=== PATIENT | female | born 1985 | race Caucasian/White ===

== ENCOUNTER 2016-12-17 13:58 | Emergency (ER) | payer MEDICAID ==
[~2016-12-17] VITALS: Ht 149.9 cm; Wt 81.8 kg
[2016-12-17 14:00] VITALS: Ht 149.9 cm; Wt 81.8 kg
--- OUTSIDE RECORDS SUMMARY | 2016-12-17 14:04 | XMS REPORT | Continuity of Care Document ---
Author Author [facility] Organization [facility] Address Unknown Phone Unavailable Allergies Active Description Code Type Severity Reaction Onset Reported/Identified Relationship to Patient Clinical Status Yes PENICILLIN 25856 1 N/A N/A Medications Medication Packaging Start Date Stop Date Route Dosage Sig ONDANSETRON ODT Tablet 12/12/2016 take 1 tablet by oral route every [address] on top of the tongue where they will dissolve, then swallow Problems Date Dx Coded Attending Type Code Diagnosis Diagnosed By 12/10/2016 Randee Paul O09.893 Supervision of other high risk pregnancies , third trimester 12/10/2016 Randee Paul Z3A.36 36 weeks gestation of Procedures Code [place] [address] Ultrasnd exam of preg uterus, compl 12/10/2016 Results Encounters ACCT No. Visit Date/Time Discharge Status Pt. Type Provider Facility Loc./Unit Complaint [id number] 12/12/2016 08:39:00 12/12/2016 23: 59:59 [facility] Outpatient Randee Paul [id number] 12/10/2016 15:30:00 12/10/2016 23: 59:59 [facility] Outpatient Randee Paul [id number] 12/10/2016 14:45:00 12/10/2016 23: 59:59 [facility] Outpatient Randee Paul [id number] 12/06/2016 09:50:00 12/06/2016 23: 59:59 [facility] Outpatient Randee Paul
[2016-12-17] MEDS ORDERED: ONDA4TAB7 PO (14:07)
[2016-12-17] MEDS ORDERED: PREN1TAB73 PO (14:07)
[2016-12-17] MEDS ORDERED: NO ROUTINE MEDS (14:08)
[2016-12-17] MEDS ORDERED: DiphenhydrAMINE 50 MG/ML INJECTION IV ONE (14:45)
[2016-12-17] MEDS ORDERED: MORPHINE SULFATE 2 MG SYRINGE IV ONE (14:45)
[2016-12-17] MEDS ORDERED: NORMAL SALINE 1,000 ML IV ONE (14:45)
[2016-12-17 14:59] LABS: BLOOD, URINE TRACE-LYSED (NEGATIVE); COLOR,URINE YELLOW (YELLOW); LEUKOCYTE ESTERASE ,URINE NEGATIVE (NEGATIVE); NITRITE,URINE NEGATIVE (NEGATIVE); UROBILINOGEN,URINE 0.2 EU/DL (NORMAL)
--- OUTSIDE RECORDS SUMMARY | 2016-12-17 15:07 | XMS REPORT | Continuity of Care Document ---
Author Author [facility] Organization [facility] Address Unknown Phone Unavailable Allergies Active Description Code Type Severity Reaction Onset Reported/Identified Relationship to Patient Clinical Status Yes PENICILLIN 93979 1 N/A N/A Medications Medication Packaging Start [...] Procedures Code Description [place] [address] Ultrasnd exam of preg uterus, compl 12/10/2016 Results Encounters ACCT No. Visit Date/Time Discharge Status Pt. Type Provider Facility Loc./Unit Complaint [id number] 12/12/2016 08:39:00 12/12/2016 23: 59:59 [facility] Outpatient Randee Paul [id number] 12/10/2016 15:30:00 12/10/2016 23: 59:59 [facility] Outpatient Randee Paul [id number] 12/10/2016 14:45:00 12/10/2016 23: 59:59 [facility] Outpatient Randee Paul [id number] 12/06/2016 09:50:00 12/06/2016 23: 59:59 [facility] Outpatient Randee Paul
[2016-12-17 15:26] LABS: BACTERIA,URINE TRACE (NEGATIVE); WBC CLUMPS,URINE FEW
[2016-12-17 15:34] LABS: BASOPHILS % (AUTO) 0.3 % (0-2); EOSINOPHILS % (AUTO) 0.2 % (0-4); HCT - HEMATOCRIT 39.2 % (36-46); HGB - HEMOGLOBIN 13.1 GM/DL (12-16); IMMATURE GRANULOCYTE # (AUTO) 0.17 T/MM3 (0.00-0.03); IMMATURE GRANULOCYTE % (AUTO) 1.8 % (0.0-0.5); LYMPHOCYTES # (AUTO) 1.4 T/MM3 (1-4.8); LYMPHOCYTES % (AUTO) 14.3 % (23-45); MEAN CORPUSCULAR HGB 27.9 UUG (26-34); MEAN CORPUSCULAR HGB CONC(MCHC 33.4 GM/DL (31-37); MEAN CORPUSCULAR VOLUME 83.6 UM3 (80-100); MEAN PLATELET VOLUME 11.8 UM3 (9.4-12.4); MONOCYTES # (AUTO) 0.5 T/MM3 (0-0.8); MONOCYTES % (AUTO) 5.4 % (0-9.0); NEUTROPHILS #(AUTO)-ABSOLUTE 7.3 T/MM3 (1.8-7.7); RED BLOOD COUNT 4.69 M/MM3 (4.00-5.20); WBC - WHITE BLOOD COUNT 9.4 T/MM3 (4.5-11.0)
--- NOTE | 2016-12-17 15:45 | ERPDOC ---
Departure Disposition Decision Date: Dec 17, 2016 Disposition Decision Time: 17:02 Disposition: 01 DISCHARGED HOME, SELF-CARE Impression Impression Impression: Primary Impression: Nausea and vomiting Vomiting type: unspecified Vomiting Intractability: non-intractable Qualified Codes: R11.2 - Nausea with vomiting, unspecified Additional Impression: Diarrhea Diarrhea type: unspecified type Qualified Codes: R19.7 - Diarrhea, unspecified Condition: Stable Seen By: Physician only Referrals: VINAY CLARK MD Follow-up as instructed Patient Instructions: Nausea and Vomiting in (ED) Problems/Meds/Labs Reviewed?: Yes Medications reviewed and manag: Yes Follow up care ordered?: Yes Mental Status: Alert, Oriented HPI - Abdominal Pain General Chief Complaint: Nausea,Vomiting,Diarrhea Stated Complaint: N.V,D Time Seen by Provider: 14:40 HPI - Abdominal Pain Allergies: Coded Allergies: Penicillins (Verified Allergy, Severe, ANAPHYLACTIC SHOCK, 12/17/16) Physical Exam General Vitals and Pain First Documented Vital Signs Date Time Temp Pulse Resp B/P Pulse Ox O2 Delivery O2 Flow Rate FiO2 12/17/16 14:00 98.3 99 15 134/90 96 Room Air Weight: Kilograms: 81.800 Height (feet): 4 Height (inches): 11.00 Triage Pain Scale: Progress Results/Orders Orders Procedure Category Date Status Time Iv Lock (Ed Only) EDM 12/17/16 Transmitted 14:40 Morphine Sulfate PHA 12/17/16 Complete (Morphine) 14:45 Diphenhydramine PHA 12/17/16 Complete (Benadryl) 14:45 Cbc W/Auto LAB 12/17/16 Complete Diff-Reflex Manual 14:40 Cmp - Comprehensive LAB 12/17/16 Complete Metabolic 14:40 Lipase LAB 12/17/16 Complete 14:40 Normal Saline (Normal PHA 12/17/16 Complete Saline Iv) 14:45 UA, LAB 12/17/16 Complete Dip&Micro(Complete) & 14:55 Lr (Lactated Ringers) PHA 12/17/16 Complete 16:00 Lr (Lactated Ringers) PHA 12/17/16 Complete W/Dimenhydrinate 16:53 Lab Results Laboratory Tests Test 12/17/16 14:07 12/17/16 14:55 White Blood Count 9.4T/MM3 Red Blood Count 4.69M/MM3 Hemoglobin 13.1GM/DL Hematocrit 39.2% Mean Corpuscular Volume 83.6UM3 Mean Corpuscular Hemoglobin 27.9UUG Mean Corpuscular Hemoglobin Concent 33.4GM/DL RDW Standard Deviation 45.3FL Platelet Count 120T/MM3 Mean Platelet Volume 11.8UM3 Immature Granulocyte % (Auto) 1.8% Neutrophils (%) (Auto) 78.0% Lymphocytes (%) (Auto) 14.3% Monocytes (%) (Auto) 5.4% Eosinophils (%) (Auto) 0.2% Basophils (%) (Auto) 0.3% Absolute Immature Granulocyte (auto 0.17T/MM3 Absolute Neutrophils (auto) 7.3T/MM3 Absolute Lymphocytes (auto) 1.4T/MM3 Absolute Monocytes (auto) 0.5T/MM3 Absolute Eosinophils (auto) 0.0T/MM3 Absolute Basophils (auto) 0.0T/MM3 Turbidity < 20 Sodium Level 140MEQ/L Potassium Level 4.5MEQ/L Chloride Level 109MEQ/L Carbon Dioxide Level 15MEQ/L Anion Gap 16MEQ/L Blood Urea Nitrogen 10.0MG/DL Creatinine 0.9MG/DL Glomerular Filtration Rate Calc 72 BUN/Creatinine Ratio 11RATIO Glucose Level 73MG/DL Calculated Osmolality 267MOSM/KG Calcium Level 9.2MG/DL Total Bilirubin 0.60MG/DL Icterus Index < 2 Aspartate Amino Transf (AST/SGOT) 27U/L Alanine Aminotransferase (ALT/SGPT) 23U/L Alkaline Phosphatase 249U/L Total Protein 7.1G/DL Albumin 3.5G/DL Globulin 3.6G/DL Albumin/Globulin Ratio 1.0RATIO Lipase 110U/L Chemistry Specimen Hemolysis < 15 Urine Collection Type Voided-not cc-midstr Urine Color Yellow Urine Turbidity Clear Urine pH 5.5 Urine Specific [place] >=1.030 Urine Protein 2+ Urine Glucose (UA) Negative Urine Ketones 1+ Urine Blood Trace-lysed Urine Nitrite Negative Urine Bilirubin Negative Urine Urobilinogen 0.2EU/DL Urine Leukocyte Esterase Negative Urine RBC 1-3/HPF Urine WBC 5-10/HPF Urine WBC Clumps Few Urine Squamous Epithelial Cells 10-20 Urine Bacteria Trace Urine Culture Indicated Cult not indicated Medications Current ED Medications Morphine Sulfate (Morphine) 2 mg O ONCE IV Last administered on 12/17/16t 14: 50; Start 12/17/16 at 14:45; Stop 12/17/16 at 14:46; Status DC Diphenhydramine HCl 50 mg 50 mg O ONCE IV Last administered on 12/17/16 14:49 ; Start 12/17/16 at 14:45; Stop 12/17/16 at 14:46; Status DC Sodium Chloride 1,000 ml @ 999 mls/hr Q1H1M ONCE IV Last administered on 14:44; Start 12/17/16 at 14:45; Stop 12/17/16 at 15:45; Status DC Lactated Ringer's 1,000 ml @ 0 mls/hr Q0M ONCE IV Last administered on 15:59; Start 12/17/16 at 16:00; Stop 12/17/16 at 16:01; Status DC Dimenhydrinate/ Lactated Ringer's (Dramamine/ Lactated Ringers) 1,001 ml @ 0 mls/hr Q0M ONCE IV ; Start 12/17/16 at 16:53; Stop 12/17/16 at 16:59; Status DC RICHARD HORN MD Dec 17, 2016 15:44
--- NOTE | 2016-12-17 15:56 | NUR ---
NST Maternal Child RN in room performing Non-Stress Test
[2016-12-17] MEDS ORDERED: LR 1,000 ML IV ONE (16:00)
[2016-12-17 16:06] LABS: ALBUMIN 3.5 G/DL (3.5-5.0); ALKALINE PHOSPHATASE 249 U/L (38-126); ALT (SGPT) 23 U/L (9-52); ANION GAP 16 MEQ/L (5-15); AST (SGOT) 27 U/L (14-36); BUN/CREATININE RATIO 11 RATIO (6-26); CALCIUM 9.2 MG/DL (8.4-10.2); CHLORIDE 109 MEQ/L (98-107); CO2 - CARBON DIOXIDE 15 MEQ/L (22-30); CREATININE 0.9 MG/DL (0.7-1.2); GLOMERULAR FILTRATION RATE 72; GLUCOSE 73 MG/DL (65-110); LIPASE 110 U/L (23-300); POTASSIUM 4.5 MEQ/L (3.6-5); SODIUM 140 MEQ/L (134-144); TOTAL PROTEIN 7.1 G/DL (6.3-8.2)
[2016-12-17] MEDS ORDERED: DimenhyDRINATE 50 MG in LR 1,000 ML IV ONE (16:53)
--- NOTE | 2016-12-17 17:11 | NUR ---
NST NST performed on pt from [id number]. Dr Paul reviewed strip as reactive and reassuring. Pt had contractions every 6-8 minutes initially with fluids contractions resolved.
[2016-12-17] MEDS ORDERED: ACETAMINOPHEN 500 MG TABLET PO ONE (17:15)
[2016-12-17 18:20] VITALS: BP 158/97; PULSE 79; RESP 20; TEMP 98.3; O2SAT 99
[2016-12-24] MEDS ORDERED: FLUO10CA21 PO (11:33)
== END 2016-12-17 18:20 | disposition home or self-care (01) ==
LOC: ED 13:58
DX: R11.2 Nausea with vomiting, unspecified (principal); R19.7 Diarrhea, unspecified
CPT/HCPCS: 80053; 81001; 83690; 85025; 96361; 96365; 96375; 99284; J1200; J1240; J7030; J7120

== ENCOUNTER 2016-12-24 14:30 | Inpatient (IN) | payer MEDICAID ==
[~2016-12-24] VITALS: Ht 149.9 cm; Wt 78.5 kg
[2016-12-24] VITALS (14 sets, daily range): BP systolic 97–177; BP diastolic 70–120; PULSE 65–95; RESP 14–18; TEMP 97.4–98.2; O2SAT 93–98
[~2016-12-24 14:30] MED LIST: FLUO10CA21 PO; NO ROUTINE MEDS; ONDA4TAB7 PO; PREN1TAB73 PO
--- OUTSIDE RECORDS SUMMARY | 2016-12-24 15:54 | XMS REPORT | Continuity of Care Document ---
Author Author [facility] Address Unknown Phone Unavailable Support Name Relationship Address Phone RICHARD HORN MD Caregiver [address] [place] [address] [place] [address] Unavailable SAW ANGELA Next Of Kin [address] [address] Insurance Providers Guarantor Cristian Aguiar Address [address] [address] Email DENIED 12-17-16 Payer [facility] [employer] Plan Policy Number [id number] Subscriber's Name Stefania,Cristian C Relationship 18 Self Effective Date 16 Expiration Date 17 Advance Directives Directive Response Recorded Date/Time Advanced Directives Type None 12/17/16 1:58pm Chief Complaint and Reason for Visit Chief Complaint Nausea,Vomiting,Diarrhea Reason for Visit Diarrhea Nausea and vomiting Problems Past Problems Medical Problem Onset Date Diarrhea Unknown Nausea and vomiting Unknown Medications Current Home Medications Medication Dose Units Route Directions Days Qty Instructions Start Date No Routine Meds 12/17/16 Ondansetron (Zofran Odt) 4 Mg Tab.rapdis 4 Mg Oral Q6h/0300,0900,1500,2100 as needed for Nausea &/Or Vomiting 12/17/16 Pnv95/Ferrous Fumarate/Fa ( Tablet) 1 Each Tablet 1 Tab Oral Daily 12/17/16 Social History Social History Problem Response Recorded Date/Time Onset Date Status Hx Substance Use No 12/17/2016 2:23pm Not Applicable Not Applicable Hx Alcohol Use No 12/17/2016 2:23pm Not Applicable Not Applicable Query Response Start Date Stop Date Smoking Status Light Smoker Hospital Discharge Instructions No hospital discharge instructions. Plan of Care Discharge Date 12/17/16 6:20pm Disposition 01 DISCHARGED HOME, SELF-CARE Condition at Discharge Stable Instructions/Education Provided Nausea and Vomiting in (ED) Prescriptions See Medication Section Referrals VINAY CLARK MD Note: Follow-up as instructed Functional Status No functional status results. Allergies, Adverse Reactions, Alerts Allergen Type Severity Reaction Status Last Updated Penicillin Allergy Severe ANAPHYLACTIC SHOCK Active 12/17/16 Immunizations Query Response on File Recorded Date/Time Influenza Vaccine Hx 06/201612/17/16 2:23pm Tetanus Diptheria Vaccine History unsure 12/17/16 2:23pm Vital Signs Acute Vital Signs Vital Response Date/Time Temperature (Fahrenheit) 98.3 deg F (96.8 - 99.1) 12/17/2016 6:20pm Temperature (Calculated Celsius) 36.34660 degrees C (36.0 - 37.3) 12/17/2016 6:20pm Pulse Rate (adult) 79 bpm (60 - 100) 12/17/2016 6:20pm Respiratory Rate 20 breaths/min (10 - 20) 12/17/2016 6:20pm O2 Sat by Pulse Oximetry 99 % (90 - 100) 12/17/2016 6:20pm Blood Pressure 158/97 mm Hg 12/17/2016 6:20pm Height (Feet) 4 feet 12/17/2016 2:00pm Height (Inches) 11.00 inches 12/17/2016 2:00pm Weight (Kilograms) 81.800 kg 12/17/2016 2:00pm Body Mass Index (BMI) 36.0 12/17/2016 2:00pm Results Laboratory Results Test Name Result Units Flags Reference Collection Date/Time Result Date/ Time Comments White Blood Count 9.4 T/MM3 4.5-11.0 12/17/2016 2:07pm 12/17/2016 3: 34pm Red Blood Count 4.69 M/MM3 4.00-5.20 12/17/2016 2:07pm 12/17/2016 3: 34pm Hemoglobin 13.1 GM/DL 12-16 12/17/2016 2:07pm 12/17/2016 3:34pm Hematocrit 39.2 % 36-46 12/17/2016 2:07pm 12/17/2016 3:34pm Mean Corpuscular Volume 83.6 UM3 80-100 12/17/2016 2:07pm 12/17/2016 3: 34pm Mean Corpuscular Hemoglobin 27.9 UUG 26-34 12/17/2016 2:07pm 2016 3:34pm Mean Corpuscular Hemoglobin Concent 33.4 GM/DL 31-37 12/17/2016 2:0712/17/2016 3:34pm RDW Standard Deviation 45.3 FL 36.9-50.2 12/17/2016 2:0712/17/2016 3 :34pm Platelet Count 120 T/MM3 L 130-400 12/17/2016 2:12/17/2016 3:34pm Mean Platelet Volume 11.8 UM3 9.4-12.4 12/17/2016 2:07pm 12/17/2016 3: 34pm Neutrophils (%) (Auto) 78.0 % H 33-66 12/17/2016 2:pm 12/17/2016 3: 34pm Lymphocytes (%) (Auto) 14.3 % L 23-45 12/17/2016 2:pm 12/17/2016 3: 34pm Monocytes (%) (Auto) 5.4 % 0-9.0 12/17/2016 2:12/17/2016 3:34pm Eosinophils (%) (Auto) 0.2 % 0-4 12/17/2016 2:12/17/2016 3:34pm Basophils (%) (Auto) 0.3 % 0-2 12/17/2016 2:12/17/2016 3:34pm Immature Granulocyte % (Auto) 1.8 % H 0.0-0.5 12/17/2016 2:2016 3:34pm Absolute Neutrophils (auto) 7.3 T/MM3 1.8-7.7 12/17/2016 2:2016 3:34pm Absolute Lymphocytes (auto) 1.4 T/MM3 1-4.8 12/17/2016 2:2016 3:34pm Absolute Monocytes (auto) 0.5 T/MM3 0-0.8 12/17/2016 2:12/17/2016 3:34pm Absolute Eosinophils (auto) 0.0 T/MM3 0-0.5 12/17/2016 2:2016 3:34pm Absolute Basophils (auto) 0.0 T/MM3 0-0.2 12/17/2016 2:12/17/2016 3:34pm Absolute Immature Granulocyte (auto 0.17 T/MM3 H 0.00-0.03 12/17/2016 2: 07pm 12/17/2016 3:34pm Icterus Index < 2 0-7 12/17/2016 2:07pm 12/17/2016 4:06pm Chemistry Specimen Hemolysis < 15 0-25 12/17/2016 2:07pm 12/17/2016 4 :06pm 0-25: Specimen Exhibited No Hemolysis. Turbidity < 20 0-20 12/17/2016 2:07pm 12/17/2016 4:06pm Sodium Level 140 MEQ/L 134-144 12/17/2016 2:07pm 12/17/2016 4:06pm Potassium Level 4.5 MEQ/L 3.6-5 12/17/2016 2:07pm 12/17/2016 4:06pm Chloride Level 109 MEQ/L H 98-107 12/17/2016 2:07pm 12/17/2016 4:06pm Carbon Dioxide Level 15 MEQ/L L 22-30 12/17/2016 2:07pm 12/17/2016 4: 06pm Anion Gap 16 MEQ/L H 5-15 12/17/2016 2:07pm 12/17/2016 4:06pm Blood Urea Nitrogen 10.0 MG/DL 7-17 12/17/2016 2:07pm 12/17/2016 4: 06pm Creatinine 0.9 MG/DL 0.7-1.2 12/17/2016 2:07pm 12/17/2016 4:06pm BUN/Creatinine Ratio 11 RATIO 6-26 12/17/2016 2:07pm 12/17/2016 4:06pm Glomerular Filtration Rate Calc 72 12/17/2016 2:12/17/2016 4: 06pm Glucose Level 73 MG/DL 65-110 12/17/2016 2:07pm 12/17/2016 4:06pm Calculated Osmolality 267 MOSM/KG 261-280 12/17/2016 2:07pm 12/17/2016 4:06pm Calcium Level 9.2 MG/DL 8.4-10.2 12/17/2016 2:07pm 12/17/2016 4:06pm Total Bilirubin 0.60 MG/DL 0.20-1.30 12/17/2016 2:07pm 12/17/2016 4: 06pm Alkaline Phosphatase 249 U/L H 38-126 12/17/2016 2:07pm 12/17/2016 4: 06pm Total Protein 7.1 G/DL 6.3-8.2 12/17/2016 2:07pm 12/17/2016 4:06pm Albumin 3.5 G/DL 3.5-5.0 12/17/2016 2:07pm 12/17/2016 4:06pm Globulin 3.6 G/DL 2.4-3.6 12/17/2016 2:07pm 12/17/2016 4:06pm Albumin/Globulin Ratio 1.0 RATIO L 1.1-2.2 12/17/2016 2:07pm 12/17/2016 4:06pm Aspartate Amino Transf (AST/SGOT) 27 U/L 14-36 12/17/2016 2:07pm 2016 4:06pm Alanine Aminotransferase (ALT/SGPT) 23 U/L 9-52 12/17/2016 2:07pm 12/17 4:06pm Lipase 110 U/L 23-300 12/17/2016 2:07pm 12/17/2016 4:06pm Urine Collection Type VOIDED-NOT CC-MIDSTR 12/17/2016 2:55pm 2016 2:59pm Urine Color YELLOW YELLOW 12/17/2016 2:55pm 12/17/2016 2:59pm Urine Turbidity CLEAR CLEAR 12/17/2016 2:55pm 12/17/2016 2:59pm Urine Specific [place] >=1.030 H 1.015-1.025 12/17/2016 2:55pm 2016 2:59pm Urine pH 5.5 5.0-8.0 12/17/2016 2:55pm 12/17/2016 2:59pm Urine Leukocyte Esterase NEGATIVE NEGATIVE 12/17/2016 2:55pm 2016 2:59pm Urine Nitrite NEGATIVE NEGATIVE 12/17/2016 2:55pm 12/17/2016 2:59pm Urine Protein 2+ A NEGATIVE 12/17/2016 2:55pm 12/17/2016 2:59pm Urine Glucose (UA) NEGATIVE NEGATIVE 12/17/2016 2:55pm 12/17/2016 2: 59pm Urine Ketones 1+ A NEGATIVE 12/17/2016 2:55pm 12/17/2016 2:59pm Urine Urobilinogen 0.2 EU/DL NORMAL 12/17/2016 2:55pm 12/17/2016 2: 59pm Urine Bilirubin NEGATIVE NEGATIVE 12/17/2016 2:55pm 12/17/2016 2: 59pm Urine Blood TRACE-LYSED A NEGATIVE 12/17/2016 2:55pm 12/17/2016 2: 59pm Urine WBC 5-10 /HPF H 0-5 12/17/2016 2:55pm 12/17/2016 3:26pm Urine WBC Clumps FEW 12/17/2016 2:55pm 12/17/2016 3:26pm Urine RBC 1-3 /HPF 0-3 12/17/2016 2:55pm 12/17/2016 3:26pm Urine Squamous Epithelial Cells 10-20 12/17/2016 2:55pm 12/17/2016 3:26pm Urine Bacteria TRACE H NEGATIVE 12/17/2016 2:55pm 12/17/2016 3:26pm Urine Culture Indicated CULT NOT INDICATED 12/17/2016 2:55pm 2016 3:26pm Procedures No known history of procedures. Encounters Encounter Location Arrival/Admit Date Discharge/Depart Date Attending Provider Departed Emergency Room [facility] 12/17/16 1:58pm 12/17/16 6: 20pm RICHARD HORN MD Recent Diagnosis
--- OUTSIDE RECORDS SUMMARY | 2016-12-24 15:54 | XMS REPORT | Continuity of Care Document ---
Author Author [facility] Organization [facility] Address Unknown Phone Unavailable Allergies Active Description Code Type Severity Reaction Onset Reported/Identified Relationship to Patient Clinical Status Yes PENICILLIN 11256 1 N/A N/A Medications Medication Packaging Start Date Stop Date Route Dosage Sig ONDANSETRON ODT Tablet 12/12/2016 take 1 tablet by oral route every [address] on top of the tongue where they will dissolve, then swallow PROMETHAZINE HCL Tablet 12/17/2016 take 1 tablet by oral route every 4 - 6 hours as needed Problems Date Dx Coded Attending Type Code Diagnosis Diagnosed By 12/10/2016 Randee Paul O09.893 Supervision of other high risk pregnancies , third trimester 12/10/2016 Randee Paul Z3A.36 36 weeks gestation of Procedures Code Description [place] [address] Ultrasnd exam of preg uterus, compl 12/10/2016 Results Encounters ACCT No. Visit Date/Time Discharge Status Pt. Type Provider Facility Loc./Unit Complaint [id number] 12/12/2016 08:39:00 12/12/2016 23: 59:59 [facility] Outpatient Randee Paul [id number] 12/10/2016 15:30:00 12/10/2016 23: 59:59 [facility] Outpatient Randee Paul [id number] 12/10/2016 14:45:00 12/10/2016 23: 59:59 [facility] Outpatient Randee Paul [id number] 12/06/2016 09:50:00 12/06/2016 23: 59:59 [facility] Outpatient Randee Paul [id number] 12/17/2016 18:38:02 Document Registration
[2016-12-24] MEDS ORDERED: LIDOCAINE 1% (10mg/ml) 2ml SDV ID PRN (16:00)
[2016-12-24] MEDS ORDERED: CITRIC ACID/SODIUM CITRATE 30 ML PO ONE (16:00)
[2016-12-24] MEDS ORDERED: FAMOTIDINE 20mg IVPB 50 ML IV ONE (16:00)
[2016-12-24] MEDS ORDERED: GENTAMICIN 120 MG in NORMAL SALINE 100 ML IV ONE (16:15)
[2016-12-24] MEDS ORDERED: CLINDAMYCIN 900mg IVPB 50 ML IV ONE (16:15)
[2016-12-24] MEDS: LR 1,000 ML IV PRN ×2 (16:30→17:02)
[2016-12-24 16:39] LABS: BASOPHILS % (AUTO) 0.3 % (0-2); EOSINOPHILS # (AUTO) 0.1 T/MM3 (0-0.5); EOSINOPHILS % (AUTO) 0.6 % (0-4); HGB - HEMOGLOBIN 11.9 GM/DL (12-16); IMMATURE GRANULOCYTE # (AUTO) 0.25 T/MM3 (0.00-0.03); IMMATURE GRANULOCYTE % (AUTO) 2.2 % (0.0-0.5); LYMPHOCYTES # (AUTO) 2.2 T/MM3 (1-4.8); LYMPHOCYTES % (AUTO) 19.2 % (23-45); MEAN CORPUSCULAR HGB 28.3 UUG (26-34); MEAN CORPUSCULAR VOLUME 83.1 UM3 (80-100); MEAN PLATELET VOLUME 11.7 UM3 (9.4-12.4); MONOCYTES # (AUTO) 0.5 T/MM3 (0-0.8); MONOCYTES % (AUTO) 4.6 % (0-9.0); NEUTROPHILS #(AUTO)-ABSOLUTE 8.3 T/MM3 (1.8-7.7); NEUTROPHILS % (AUTO) 73.1 % (33-66); RED BLOOD COUNT 4.21 M/MM3 (4.00-5.20); WBC - WHITE BLOOD COUNT 11.3 T/MM3 (4.5-11.0)
[2016-12-24] MEDS ORDERED: MAGNESIUM SULFATE 6 GRAM *MC* 6 G in NORMAL SALINE 50 ML IV PRN (16:45)
[2016-12-24] MEDS ORDERED: CALCIUM GLUCONATE 4.65 MEQ/10 ML INJECTION IV PRN (16:45)
[2016-12-24] MEDS ORDERED: MAGNESIUM SULFATE 6 GRAM *MC* 6 G in NORMAL SALINE 50 ML IV ONE (16:45)
[2016-12-24] MEDS ORDERED: CITRIC ACID/SODIUM CITRATE 30 ML PO PRN (16:45)
[2016-12-24] MEDS ORDERED: FENTANYL 250mcg/5ml INJECTION IV ONE (17:05)
[2016-12-24] MEDS ORDERED: EPHEDRINE SULFATE 50mg/ml INJECTION IM ONE (17:07)
[2016-12-24 17:13] LABS: CREATININE 0.9 MG/DL (0.7-1.2)
[2016-12-24] MEDS ORDERED: METOCLOPRAMIDE 10mg/2ml INJECTION IV ONE (17:15)
[2016-12-24] MEDS: MAGNESIUM SULFATE 20 GM DRIP 500 ML IV SCH (17:33)
[2016-12-24] MEDS ORDERED: ONDANSETRON 4mg/2ml INJECTION IV ONE (17:55)
[2016-12-24] MEDS ORDERED: MORPHINE 10mg/ml vl INJECTION IV ONE (18:12)
[2016-12-24] MEDS ORDERED: FENTANYL 100mcg/2ml INJECTION IV ONE (18:21)
[2016-12-24] MEDS ORDERED: OXYTOCIN 30 UNIT in D5LR 500 ML IV SCH (18:53)
[2016-12-24] MEDS ORDERED: MILK OF MAGNESIA 30 ML SUSP PO PRN (19:00)
[2016-12-24] MEDS ORDERED: HYDROCODONE/APAP 5 mg/325 mg TABLET PO PRN (19:00)
[2016-12-24] MEDS ORDERED: ACETAMINOPHEN 500 MG TABLET PO PRN (19:00)
[2016-12-24] MEDS ORDERED: DiphenhydrAMINE 25 MG CAPSULE PO PRN (19:00)
[2016-12-24] MEDS ORDERED: HYDROCORTISONE 2.5% CREAM 30 GM RECTALLY PRN (19:00)
[2016-12-24] MEDS ORDERED: CALCIUM CARBONATE 500mg Chewable TAB PO PRN (19:00)
--- NOTE | 2016-12-24 19:08 | ANESOB ---
Epidural/ Date/Time DATE: 12/24/16 TIME: 19:02 Preop Diagnosis severe preeclampsia, Procedure: (repeat) Plan: FATIMAHA Height: 4 ' 11.00 " Weight: kg BMI: kg/m2 NPO since: 1400 P:1 Heart Rate: 127 Medications & Allergies Inpatient Medications Current Medications Medications (Trade) Dose Ordered Sig/Chery Start Time Stop Time Status Last Admin Dose Admin Lactated Ringer's (Lactated Ringers) 1,000 ml @ 150 mls/hr Q6H40M PRN 12/24/16 15:51 12/24/16 19:00 DC 12/24/16 17:02 150 MLS/HR Lidocaine HCl 0.2 mg 0.2 mg PRN PRN 12/24/16 16:00 12/24/16 19:00 DC Magnesium Sulfate 6 g/Sodium Chloride 50 ml @ 600 mls/hr PRN PRN 12/24/16 16:45 12/24/16 19:00 DC Magnesium Sulfate (Mag Sulfate Drip) 500 ml @ 50 mls/hr Q10H 12/24/16 16:42 12/24/16 17:33 50 MLS/HR Citric Acid/ Sodium Citrate (Bicitra) 30 ml Q2H PRN 12/24/16 16:45 12/24/16 19:00 DC Calcium Gluconate (Calcium Gluconate) 4.65 meq O PRN 12/24/16 16:45 Fluoxetine HCl (Prozac) 10 mg DAILY 12/25/16 09:00 UNV Prenat Multivit/ [place]/Iron/Folic Ac 1 tab 1 tab DAILY 12/25/16 09:00 UNV Oxytocin 30 unit/ Dextrose/Lactated Ringer's 503 ml @ 50 mls/hr Q10H4M 12/24/16 18:53 12/25/16 04:56 UNV Dextrose/Lactated Ringer's (D5lr) 1,000 ml @ 100 mls/hr Q10H 12/24/16 18:53 UNV Acetaminophen/ Hydrocodone Bitart ([place] 5/325) Do not exceed 10 tabs in... Q4H PRN 12/24/16 19:00 UNV Docusate Calcium (SURFAK 240 mg) 240 mg DAILY 12/25/16 09:00 UNV Simethicone (MYLICON 80 mg) 80 mg PCHS 12/24/16 22:00 UNV Acetaminophen (Tylenol Extra Strength) 1-2 TABS = 500-1,000 MG Q4H PRN 12/24/16 19:00 UNV Diphenhydramine HCl (Benadryl) 1-2 TABS = 25-50 MG Q6H PRN 12/24/16 19:00 UNV Magnesium Hydroxide (Mom) 30 ml HS PRN 12/24/16 19:00 UNV Hydrocortisone (Anusol-Hc) 1 applic PRN PRN 12/24/16 19:00 UNV Calcium Carbonate (TUMS Regular Strength) 1-2 TABS = 500-1,000 MG Q2H PRN 12/24/16 19:00 UNV Fluoxetine HCl (Prozac) 10 Mg Capsule, 10 MG PO DAILY, (Reported) Ondansetron (Zofran Odt) 4 Mg Tab.rapdis, 4 MG PO Q6HR PRN for NAUSEA &/OR VOMITING, (Reported) Pnv95/Ferrous Fumarate/FA ( Tablet) 1 Each Tablet, 1 TAB PO DAILY, ( Reported) Coded Allergies: Penicillins (Verified Allergy, Severe, ANAPHYLACTIC SHOCK, 12/24/16) Medical/Surgical History Anesthesia PMH: Reports: *Hypertension (RELATED TO -NOT ON MEDS, severe preeclampsia. Placed on magnesium sulfate), Obesity, Reflux (RELATED TO PREG. ), Denies: Anesthesia Reactions (NO AIRWAY ISSUES ), Cancer, Glaucoma, Malignant Hyperthermia Smoking Status: Current every day smoker # of Packs/Tins per Day: 0.8 # of Years: 20 Does patient use chewing tobac: No Second Hand Exposure: No Substance Use Type: methamphetamine (history of drug abuse. last use a year ago) Alcohol Intake: none Anesthesia Adverse Reactions: FOUND none Family Hx of Anesthesia Advers: none Hx of Motion Sickness: No Complications During : Yes (sever preeclampsia) Pertinent Findings Laboratory Tests 12/24/16 16:14 12/24/16 16:41 Physical Exam Respiratory: Bilat breath sounds equal, Lungs clear Cardiovascular: Regular rate, rhythm Airway Assessment Mallampati Score: II TMD: 3 Fingerbreadths Neck Extension: Fair Teeth: Chipped Teeth/Crowns, Poor Dentation Overall Assessment: No Airway Concerns ASA: 3, E Discussion Discussed risks/options/alternatives of anesthesia. Patient consents. Nursing pain assessment noted. Attestation Statement Prior to the delivery of any anesthetic medication, I examined the patient, developed the plan, obtained the patient's consent and discussed the risk and benefits of the procedure with the patient/guardian. If the note happens to be signed after anesthesia start time, it is only due to providing efficient care of the patient and documenting at a time when the computer is available. COLT GODFREY THEATRICAL VARIETY AGENT Dec 24, 2016 19:06
--- NOTE | 2016-12-24 19:10 | OPNOTEPD ---
Operative Note Date of Operation Date of Operation: 12/24/16 General : 3 Para: 1 Gestation (Weeks): 38 Gestation (Days): 4 Preoperative Diagnosis Previous section, Desires sterilization Severe pre-eclampsia by BP and thrombocytopenia and proteinuria Postoperative Diagnosis Same as preoperative dx Procedure Repeat, Low-transverse , Tubal Ligation (Churdan) Surgeon Randee Paul MD Citizen Participation Specialist Elizabeth Daly MD Anesthesia Anesthesia Provider: Jim Gamez CRNA Anesthesia Type: general Complications No Complications: No complications Findings viable male, clear fluids, normal uterus, normal adenexa APGARS [place] Weight 2654 grams [place] Name [place] BAL[place] Indications Previous C/S x1, severe pre-eclampsia at term gestation by severe BP and thrombocytopenia Description of Procedure The patient was taken to the operating room where adequate anesthesia as described above was obtained. A Pfannenstiel skin incision was made with the scalpel and carried down to the fascia. Hemostasis was accomplished along the way with Bovie cautery. The fascia was incised and the rectus muscles in the midline. The peritoneum was entered and incised superiorly and inferiorly taking care to avoid the bowel and bladder. A bladder blade was inserted and a bladder flap was created. A low transverse uterine incision was made as described above and the infant was delivered in the cephalic position. Mouth and nares were bulb suctioned, the cord was clamped and cut, and the was handed to the awaiting turbine operator. The placenta was delivered and the uterine cavity examined. The uterine incision was closed in a running-lock fashion with 0-monocryl. Attention was then turned to the left fallopian tube which was grasped with a Finley clamp. The midsegment was grasped, a hemostat placed through an avascular portion of the mesosalpinx, the jaws opened to separate mesosalpinx from tubal segment to be resected, and two 0-chromic ties were brought through the resulting defect. A 2 cm segment of tube was then doubly ligated and resected with the resulting specimen sent to Pathology. Hemostasis was confirmed. A similar procedure was performed on the other fallopian tube, resecting a 2 cm segment. The hysterotomy was re-examined and noted to be hemostatic. The peritoneal layer was then reapproximated with 2-0 vicryl. The fascia was closed with 0-vicryl suture and the subcutaneous tissue was reapproximated with 2-0 vicryl suture. The skin was closed with 4-0 monocryl suture in subcuticular fashion and a sterile dressing was applied. The patient taken to the recovery room in satisfactory condition. Needle, sponge, and instrument counts were correct. RANDEE PAUL MD Dec 24, 2016 18:53
[2016-12-24] MEDS ORDERED: HYDROMORPHONE 2mg/ml INJECTION IV PRN (19:15)
[2016-12-24] MEDS ORDERED: NALOXONE 0.4mg/ml INJECTION IV PRN (19:15)
[2016-12-24] MEDS ORDERED: ONDANSETRON 4mg/2ml INJECTION IV PRN (19:15)
[2016-12-24] MEDS: D5LR 1,000 ML IV SCH (19:30)
--- NOTE | 2016-12-24 19:48 | ANESPO ---
Post-Op Note Date 12/24/16 Time: 19:48 Status Pt Participated in Evaluation: Pt participated in person Vital Signs Date Time Temp Pulse Resp B/P Pulse Ox O2 Delivery O2 Flow Rate FiO2 12/24/16 19:35 82 18 168/99 95 Room Air 12/24/16 19:25 97.6 Respiratory Function: Airway patent, Regular respirations Cardiovascular Function: Regular pulse Mental Status: Alert/oriented Pain Level Intensity: 5 Hydration: Taking po fluids Complications during Recovery None apparent Follow-Up Instructions Instructions Per Surgeon COLT GODFREY CRNA Dec 24, 2016 19:48
[2016-12-24] MEDS: LABETALOL 100mg/20ml INJECTION IV PRN ×3 (20:01→21:15)
[2016-12-24] MEDS: SIMETHICONE 80 MG CHEWABLE TABLET PO CHEW SCH (22:00)
[2016-12-24 22:16] LABS: HCT - HEMATOCRIT 27.7 % (36-46); HGB - HEMOGLOBIN 9.3 GM/DL (12-16); MEAN CORPUSCULAR HGB 28.4 UUG (26-34); MEAN CORPUSCULAR HGB CONC(MCHC 33.6 GM/DL (31-37); MEAN CORPUSCULAR VOLUME 84.7 UM3 (80-100); MEAN PLATELET VOLUME 10.8 UM3 (9.4-12.4); RED BLOOD COUNT 3.27 M/MM3 (4.00-5.20); WBC - WHITE BLOOD COUNT 11.8 T/MM3 (4.5-11.0)
[2016-12-25] VITALS (21 sets, daily range): BP systolic 100–147; BP diastolic 62–89; PULSE 80–111; RESP 16–20; TEMP 97.9–98.6; O2SAT 96–100
--- NOTE | 2016-12-25 00:13 | NUR ---
DECREASED URINE OUTPUT: Total Urine output for the past 4 hours total 107ml. RN calls and updates Dr Daly. Dr Daly orders to stop Pitocin and have fluid total volume of 150ml/hr. RN stops Pitocin and is infusing D5LR 100ml/hr and Mag. 2gram/hr to total 150ml/hr. Pt continues to sleep.
--- NOTE | 2016-12-25 02:17 | NUR ---
Chart Check 24 hour chart check completed
--- NOTE | 2016-12-25 02:19 | NUR ---
SHIFT SUMMARY: PT admitted directly from [facility] due to preeclampsia. BP elevated, LAYNE and RUQ pain present. Dr Paul was updated on elevated BP's and pt's symptoms. Dr Paul assessed pt and IV Magnesium was started. PT was prepared and received repeat c/s with bilateral tubal ligation under general anesthesia. 1750-delivery of viable male , Dr Johansen in attendance and assigns APGARS of 8/9/9. PT transferred back to pp room 102 for PACU and PP recovery. Pt has occasional elevated BP, Dr Daly notified and orders IV Labetalol. 3 doses of 10mg Labetalol given to get BP stable. Fundus firm at 2 below umbilicus, no lochia noted. Incision dressing has pinkish-red drainage on lower mid to left side, RN circled drainage. PO [place] 10 x1 given for pain. Bilateral thigh-high SCD's pumping. Urinary lora cath to dependent drain, urine output concentrated and inadequate. Dr Daly notified and orders recieved, Pitocin off and D5LR increased. Urine output was concentrated but adequate at 0200. Repeat labs and decreased urine output called to Dr Daly. Orders received. Pt tolerating PO water and has been sleeping most of the shift after surgery. Pt held baby skin to skin for approx. 20min, RN remained at bedside due to pt drifting in and out of sleep. Room dark and cool, Brandon present late this evening.
[2016-12-25] MEDS: MAGNESIUM SULFATE 20 GM DRIP 500 ML IV SCH ×3 (03:42→19:01)
[2016-12-25] MEDS ORDERED: LABETALOL 100mg/20ml INJECTION IV PRN (06:30)
[2016-12-25 06:43] LABS: HCT - HEMATOCRIT 21.1 % (36-46); MEAN CORPUSCULAR HGB 28.2 UUG (26-34); MEAN CORPUSCULAR HGB CONC(MCHC 33.2 GM/DL (31-37); MEAN CORPUSCULAR VOLUME 85.1 UM3 (80-100); MEAN PLATELET VOLUME 11.2 UM3 (9.4-12.4); RED BLOOD COUNT 2.48 M/MM3 (4.00-5.20); WBC - WHITE BLOOD COUNT 11.2 T/MM3 (4.5-11.0)
--- NOTE | 2016-12-25 08:43 | NUR ---
assessment Blood drawn at 0800, hgb 7.0; Magnesium level 8.1. DTRs WNL, denies dizziness or lightheadness, VS stable and no active vaginal bleeding noted. Dr. Paul here, Magnesium discontinued, orders for hemogram and Magnesium level at 1200. Will continue to evaluate patients status.
--- NOTE | 2016-12-25 09:09 | PNPDOC ---
Prog Note 12/25/16 Patient is feeling okay, pain is well controlled at this time. She has not ambulated yet. She does report feeling a little nauseous from the magnesium infusion. No dizziness, chest pain. She also states she forgot to mention that she usually bleeds easily - usually from her gums. AFVSS. BP now normotensive (back to baseline). No tachycardia, pulse 80s. UOP (hourly): 60 / 75 / 75 / 75 NAD RRR CTAB Abd is soft, mildly distended, NOT rigid, no rebound/guarding, fundus firm, dressing over Pfannenstiel incision with old blood Niecy dry, lora in place draining clear urine Ext 1+ edema, nontender Labs: Hgb 11.9 (AP) - 9.3 (POD0) - 7.0 (POD1) Platelets 125 (1 week ago) - 83 (AP) - 58 (POD0) - 50 (POD1) Cr 0.9 AST 43 Mag [6.1] at 4 hr - [8.2] at 13h 31 year old A1 now POD#1 s/p rLTCS + BTL with 800 cc EBL, complicated by severe pre-eclampsia by BP (no A), 4+ proteinuria and thrombocytopenia - clinically doing okay but with larger than expected drop in hgb. Heme: acute blood loss anemia - no evidence of ongoing bleeding on exam though very high risk due to severe thrombocytopenia, no tachycardia, adequate UOP for weight, due to unexpected drop in hgb, repeat CBC in 4 hours, will likely need a blood transfusion due to acute anemia in a supposedly hemoconcentrated state from the SPE. Start iron therapy once tolerated po. If hgb continues to drop, will consider imaging with CTAP. SPE: stop magnesium infusion for now as patient is approaching supra- therapeutic state, recheck mag level in 4 hours and if drops below 4.9, will restart mag infusion at 1g/h. Monitor for s/sx of toxicity. Recheck AST and platelets. : keep lora catheter until mag infusion of over, check hourly I/Os. FEN/GI: can have clear liquid diet, advance as tolerated. Antiemetics prn. Limit fluids. Continue routine post-op care. Infant is rooming in and doing well. Questions solicited and answered to patient's satisfaction. VINAY CLARK MD Dec 25, 2016 08:33
--- NOTE | 2016-12-25 09:15 | NUR ---
activity Patient dangled at side of the bed with assistance. Tolerated okay but did complain of some dizzy and lightheadedness and pain. Back to bed. Niecy care provided and pad and panties changed. SCDs remain in place.
[2016-12-25] MEDS: DOCUSATE CALCIUM 240 MG CAPSULE PO SCH (09:27)
[2016-12-25] MEDS: FLUOXETINE 10 MG PO SCH (09:27)
[2016-12-25] MEDS: SIMETHICONE 80 MG CHEWABLE TABLET PO CHEW SCH ×4 (09:27→21:45)
[2016-12-25] MEDS: D5LR 1,000 ML IV SCH ×2 (09:28→14:53)
--- NOTE | 2016-12-25 10:00 | NUR ---
CM THIS WORKER MET WITH PT ON THIS DATE. PT WAS LAYING IN BED AT THIS TIME. BABY IN BASSINET AND FOB AT BEDSIDE. THIS WORKER INTRODUCED SELF AND ROLE OF CASE MANAGEMENT. FAMILY REPORTED THAT THEY HAVE MOVED HERE FROM [place] ABOUT 2 WEEKS AGO. PARENTS REPORTED THAT THEY HAVE ALL NECESSARY ITEMS FOR BABY TO INCLUDE: BASSINET, DIAPERS, CLOTHING, CAR SEAT. MOTHER REPORTED THAT SHE IS PLANNING TO GET A BREASTPUMP AND KNOWS THAT HER INSURANCE WILL PAY FOR ONE. MOTHER REPORTED THAT SHE HAS APPLIED FOR FOOD STAMPS SINCE BEING IN [place]. THIS WORKER INQUIRED REGARDING WIC SERVICES. MOTHER EXPLAINED THAT SHE WAS RECEIVING WIC SERVICES IN [place], BUT THAT SHE HAS NOT STARTED THEM IN [place]. MOTHER GAVE CONSENT FOR THIS WORKER TO CONTACT WIC OFFICE IN [place] TO GET THAT TRANSFER STARTED. PARENTS REPORTED THAT THEY ARE CURRENTLY LIVING WITH WILLY'S (21 YEAR OLD) DAUGHTER AT THIS TIME. FATHER REPORTS THAT HE IS STARTING A NEW JOB NEXT WEEK. PARENTS REPORTED FINANCIAL ABILITY TO MEET THE NEEDS. THIS WORKER INQUIRED REGARDING PRIOR DCF INVOLVEMENT WITH MOTHER'S (3 YEAR OLD) DAUGHTER THAT IS RESIDING WITH MATERNAL GRANDMOTHER IN [place]. PARENTS BOTH DECLINED ANY DCF INVOLVEMENT WITH ANY CHILDREN. MOTHER REPORTED THAT SHE SIGNED A TEMPORARY GUARDIANSHIP OF HER DAUGHTER WITH MATERNAL GRANDMOTHER. MOTHER REPORTED THAT SHE HAS A HISTORY OF USING [employer] AND MADE THE CHOICE TO DO THE GUARDIANSHIP. MOTHER REPORTED THAT SHE HAS BEEN CLEAN FOR ABOUT A YEAR AND THAT SHE HAD BEEN TO TREATMENT IN [place]. FOB ALSO REPORTED THAT HE IS SOBER WELL AND THAT HE AND MOTHER HAD WORKED AT A TREATMENT FACILITY IN THE PAST. MOTHER REPORTED THAT SHE HAS REGULAR CONTACT WITH MATERNAL GRANDMOTHER AND HER DAUGHTER. MOTHER REPORTED THAT SHE DOES NOT HAVE THE BEST RELATIONSHIP WITH HER MOTHER, BUT THAT THEY ARE WORKING ON THINGS. THIS WORKER SPOKE WITH [facility] FROM THE HEALTH DEPARTMENT. UPDATED ON DELIVERY DATE AND NEED FOR WIC SERVICES TO BE TRANSFERRED TO [place]. THIS WORKER PROVIDED CONTACT INFORMATION TO PT AND FOB. ENCOURAGED FAMILY TO DISCUSS ANY NEEDS THAT THEY MAY HAVE AND THAT THIS WORKER WILL VISIT AGAIN ON 12/26/16.
[2016-12-25] MEDS ORDERED: RHO(D) IMMUNE GLOBULIN 300mcg/2ml INJECTION IV ONE (10:30)
[2016-12-25 11:59] LABS: HCT - HEMATOCRIT 19.8 % (36-46); HGB - HEMOGLOBIN 6.5 GM/DL (12-16); MEAN CORPUSCULAR HGB 27.8 UUG (26-34); MEAN CORPUSCULAR HGB CONC(MCHC 32.8 GM/DL (31-37); MEAN CORPUSCULAR VOLUME 84.6 UM3 (80-100); MEAN PLATELET VOLUME 11.5 UM3 (9.4-12.4); RED BLOOD COUNT 2.34 M/MM3 (4.00-5.20); WBC - WHITE BLOOD COUNT 10.9 T/MM3 (4.5-11.0)
--- NOTE | 2016-12-25 12:00 | NUR ---
assessment lab results back; hgb 6.5, HCT 19.8, Magnesium 5.7, Platlets 50, AST 98, INR 0.85. Dr. Paul updated on lab results, orders received to transfuse 2 PRBC. Consents signed, Dr. Paul here to talk with patient about need for blood transfusion.
[2016-12-25 12:04] LABS: INR 0.85 (0.76-1.04); PROTHROMBIN TIME 9.3 SEC (9.31-12.49)
[2016-12-25] MEDS ORDERED: NORMAL SALINE 500 ML IV SCH (12:46)
--- NOTE | 2016-12-25 13:30 | NUR ---
blood transfusion Benadryl 25mg PO provided before blood tranfusion started. Baseline VS obtained. See laboratory/meditech transfusion history for further information.
--- NOTE | 2016-12-25 14:09 | ANESPO ---
Post-Op Note Date 12/25/16 Time: 19:48 Status Pt Participated in Evaluation: Pt participated in person Vital Signs Date Time Temp Pulse Resp B/P Pulse Ox O2 Delivery O2 Flow Rate FiO2 12/25/16 12:00 90 18 127/68 100 Room Air 12/25/16 05:00 97.9 Respiratory Function: Airway patent, Regular respirations Cardiovascular Function: Regular pulse Mental Status: Alert/oriented Pain Level Intensity: 0 Hydration: Taking po fluids Complications during Recovery None apparent Follow-Up Instructions Instructions Per Surgeon Additional Information currently receiving PRBCs. drowsy, but awake and appropriate. denies pain. full motor and sensation have returned MARY SOARES CRNA Dec 25, 2016 14:09
[2016-12-25] MEDS: PRENATAL VITAMIN TABLET PO SCH (15:48)
[2016-12-25 15:57] LABS: HGB - HEMOGLOBIN 7.7 GM/DL (12-16)
--- NOTE | 2016-12-25 17:10 | PNPDOC ---
Prog Note 12/25/16 Pt is feeling better - currently has her second unit of pRBCs running. AF, BP non-severe. UOP (hourly) 175 / 300 / 175 Exam unremarkable A: HELLP syndrome - concern for hemolysis so currently getting a blood transfusion. P: continue magnesium infusion until 24 hours PP. Trend H/H, platelets, AST. VINAY CLARK MD Dec 25, 2016 17:10
--- NOTE | 2016-12-25 20:30 | NUR ---
Activity Patient up to bedside chair. Does not tolerate very well. Moves very slow, c/o pain constantly. Previously medicated before trying to get paitient. Try to explain to her that the more she moves the better she will feel.
[2016-12-25 21:09] LABS: HCT - HEMATOCRIT 26.7 % (36-46); HGB - HEMOGLOBIN 9.1 GM/DL (12-16); MEAN CORPUSCULAR HGB CONC(MCHC 34.1 GM/DL (31-37); MEAN PLATELET VOLUME 11.8 UM3 (9.4-12.4); RED BLOOD COUNT 3.14 M/MM3 (4.00-5.20); WBC - WHITE BLOOD COUNT 8.6 T/MM3 (4.5-11.0)
--- NOTE | 2016-12-25 21:26 | NUR ---
Update Beverly Paul updated on status and lab results. No new orders at this time.
[2016-12-26] VITALS (8 sets, daily range): BP systolic 142–171; BP diastolic 77–106; PULSE 86–104; RESP 16–20; TEMP 97.9–98.7; O2SAT 94–100
--- NOTE | 2016-12-26 02:17 | NUR ---
Sleep Patient reports not being able to sleep. She would like her pain medication that is due at 0300 and benadryl if she can have it. Niecy pad also changed at this time. Patient has a difficult time positioning herself in bed, nurse offers assistance in repositioning but patient declines. She also states it hurts to cough. Instruct on guarding abdomen with pillow or blanket to ease discomfort with coughing.
--- NOTE | 2016-12-26 06:45 | NUR ---
Co-sleeping Edu: This RN went into the room and mother was asleep with infant in her arms with blankets and pillow all around. taken and placed in bassinet. Educated parents on importance of a tight swaddle and no extra pillows and blankets and to place infant on firm mattress on his back. Parents verbalized understanding.
--- NOTE | 2016-12-26 08:57 | PNPDOC ---
Prog Note 12/26/16 Patient is feeling better, no complaints this AM. She finally passed flatus overnight but has not ambulated very much. Tolerating po. Afebrile. BPs 140s/80s. NAD Abd is soft, mild distension improved, no rebound/guarding, fundus firm, Pfannenstiel incision intact, no erythema/induration Niecy dry, lora in place draining clear urine Ext 1+ edema, nontender Labs: Hgb 11.9 (AP) - 9.3 (POD0) - 7.0 (POD1) - 2u pRBCs - 9.1 (post-transfusion) Platelets 125 (1 week ago) - 83 (AP) - 58 (POD0) - 50 (POD1) - 50 Cr 0.9 AST 43 - 98 - 60 31 year old A1 now POD#2 s/p rLTCS + BTL with 800 cc EBL complicated by HELLP syndrome, improving. Hemodynamically stable. --Recheck CBC, AST - if all improving, can stop lab draws. --Needs to ambulate more. --Routine post-op care. --Questions solicited and answered. VINAY CLARK MD Dec 26, 2016 08:55
[2016-12-26] MEDS ORDERED: MEASLES-MUMPS-RUBELLA VACCINE 0.5ml INJECTION SQ ONE (09:00)
[2016-12-26] MEDS ORDERED: ONDANSETRON ODT 4 MG TAB PO PRN (09:15)
[2016-12-26 09:21] LABS: HCT - HEMATOCRIT 25.1 % (36-46); HGB - HEMOGLOBIN 8.2 GM/DL (12-16); MEAN CORPUSCULAR HGB 27.9 UUG (26-34); MEAN CORPUSCULAR HGB CONC(MCHC 32.7 GM/DL (31-37); MEAN CORPUSCULAR VOLUME 85.4 UM3 (80-100); MEAN PLATELET VOLUME 11.3 UM3 (9.4-12.4); RED BLOOD COUNT 2.94 M/MM3 (4.00-5.20); WBC - WHITE BLOOD COUNT 9.2 T/MM3 (4.5-11.0)
[2016-12-26] MEDS: SIMETHICONE 80 MG CHEWABLE TABLET PO CHEW SCH ×3 (09:29→20:23)
--- NOTE | 2016-12-26 10:50 | NUR ---
Called Dr: RN went into pt room and she was not alert and seemed to be sleeping, was very hard to arouse and when she did talk she said she felt nauseated. Her urine output was 175ml for 4 hr. And her Hg was 8.5. She was not dizzy or light headed. She said sheahd also been passing gas all morning. Dr Paul was called and updated on pt's status. She came over and encouraged pt to be up and to shower and that would help her feel better.
--- NOTE | 2016-12-26 12:06 | NUR ---
CM THIS WORKER MET AGAIN WITH PT AND FOB. PARENTS REPORTED THAT THEY ARE DOING WELL. DENIED NEEDS AT THIS TIME. THIS WORKER PROVIDED PARENTS WITH A PARENTS TEACHERS BROCHURE. THIS WORKER PROVIDED PT AND FOB WITH THE [facility] OFFICE NUMBER AND PROCESS FOR GETTING [facility] SERVICES TRANSFERRED TO [facility]. ENCOURAGED PT TO CONTACT THIS WORKER WITH ANY NEEDS.
[2016-12-26] MEDS: PRENATAL VITAMIN TABLET PO SCH (12:38)
[2016-12-26] MEDS: FLUOXETINE 10 MG PO SCH (12:38)
[2016-12-26] MEDS: DOCUSATE CALCIUM 240 MG CAPSULE PO SCH (12:39)
[2016-12-26] MEDS ORDERED: LABETALOL 100mg/20ml INJECTION IV ONE (14:30)
--- NOTE | 2016-12-26 15:10 | NUR ---
BP: Pt's BP was elevated and Dr. Paul was updated to 163/106 Labetalol 10mg IV was ordered and given at 1440. Dr. Paul was at bedside. was finished eating and encouraged that baby be taken to nursery to then let mother sleep for 2-3 hours. Mother expressed that it would be ok if got a bottle of Similac if needed. Dr. Paul again encouraged RN to let pt sleep for 2-3 hours uninterrupted.
--- NOTE | 2016-12-26 16:36 | NUR ---
Shift Summary: Pt has been somewhat drowsy and non-compliant with wanting to get out of bed today. Pulse has been high this am and then BP was elevated this afternoon (see BP note.) She has c/o feeling like she "needs to throw up." She has been passing gas and states her tummy doesn't "feel as full as yesterday." With encouragement from Dr. Paul pt has been up and has showered. She has not felt like eating much but clear liquids have been encouraged. No c/o of dizziness or lightheadedness or blurred vision. Incision is clean, dry and intact. Abdominal binder is at bedside. Pain has been controlled with oral pain meds. Vaginal bleeding is minimal. is reported by parents as going well. RN has seen one feed. FOB is present and supportive.
--- NOTE | 2016-12-26 16:50 | NUR ---
BP: BP of 150/103. Pt. resting quietly in room. Lights and TV off. Notified Dr. Paul and ordered to recheck BP in an hour. Dr. Paul also ordered for pt. to get up shortly and walk in hallways and for this RN to put SCD's on pt. tonight. Dr. Paul assessing pt. at this time.
[2016-12-26] MEDS: RANITIDINE 150 MG TABLET PO SCH (17:42)
--- NOTE | 2016-12-26 17:50 | NUR ---
BP: BP of 171/99. Retook BP a minute later and BP result of 146/99. Pt. is up to BR at this time. Pt. denies headache, dizziness, blurred vision. This RN notified Dr. aPul of BP and ordered to recheck BP in two hours and call with results.
--- NOTE | 2016-12-26 20:20 | NUR ---
BP follow up: BP of 149/90. Pt. states she feels better overall and that it felt good to get up and walk in hallway. Pt. states she is passing a lot of gas and doesn't feel nauseous anymore which she previously noted at the beginning of the shift. Notified Dr. Paul of pt's BP and that the pt. states she feels better overall. Dr. Paul ordered for VS to return to Q4H. Will continue to monitor.
--- NOTE | 2016-12-26 21:30 | NUR ---
SCD's/safe sleep: Bilateral thigh high SCD's applied at this time per Dr. Fuentes orders. Pt. sleeping upon entering the room. WILLY Taylor at bedside sleeping with infant tucked under his arm. This RN educated parents on safe sleep, swaddled and placed him in bassinet.
[2016-12-27] VITALS: BP 151/81; PULSE 94; RESP 16; TEMP 98.4; O2SAT 96
[2016-12-27] MEDS: SIMETHICONE 80 MG CHEWABLE TABLET PO CHEW SCH ×3 (00:07→13:49)
[2016-12-27 04:00] VITALS: BP 145/86; PULSE 98; RESP 16; TEMP 98.5; O2SAT 98
[2016-12-27 05:08] LABS: HCT - HEMATOCRIT 25.1 % (36-46); HGB - HEMOGLOBIN 8.1 GM/DL (12-16); MEAN CORPUSCULAR HGB 28.2 UUG (26-34); MEAN CORPUSCULAR HGB CONC(MCHC 32.3 GM/DL (31-37); MEAN CORPUSCULAR VOLUME 87.5 UM3 (80-100); MEAN PLATELET VOLUME 11.6 UM3 (9.4-12.4); RED BLOOD COUNT 2.87 M/MM3 (4.00-5.20); WBC - WHITE BLOOD COUNT 10.9 T/MM3 (4.5-11.0)
[2016-12-27 07:30] VITALS: BP 151/92; PULSE 99; RESP 18; TEMP 98.6; O2SAT 98
[2016-12-27] MEDS ORDERED: LABETALOL 100 MG TABLET PO SCH (09:30)
--- NOTE | 2016-12-27 09:30 | PNPDOC ---
Prog Note 12/27/16 Patient is feeling well this AM - has met all post-op goals. She would like discharge home today if possible. Afebrile. BPs 150-140s/80-90s.. NAD Abd is soft, mild distension continues to improve, no rebound/guarding, fundus firm, Pfannenstiel incision intact, no erythema/induration Ext no edema, nontender Labs: Hgb 11.9 (AP) - 9.3 (POD0) - 7.0 (POD1) - 2u pRBCs - 9.1 (post-transfusion) - 8.2 (POD2) - 8.1 (POD1) Platelets 125 (1 week ago) - 83 (AP) - 58 (POD0) - 50 (POD1) - 50 - 45 - 68 Cr 0.9 AST 43 - 98 - 60 - 38 LDH 798 31 year old A1 now POD#3 s/p rLTCS + BTL with 800 cc EBL complicated by HELLP syndrome, improving and resolving. Hemodynamically stable. Thrombocytopenia is finally on the upward trend. BPs continue to be elevated, however. --Start Labetalol 200mg BID. Monitor BPs. --Routine post-op care. --Can consider discharge home later this PM if BPs improve. --Questions solicited and answered. VINAY CLARK MD Dec 27, 2016 09:23
[2016-12-27] MEDS: DOCUSATE CALCIUM 240 MG CAPSULE PO SCH (09:58)
[2016-12-27] MEDS: PRENATAL VITAMIN TABLET PO SCH (09:58)
[2016-12-27] MEDS: RANITIDINE 150 MG TABLET PO SCH (09:59)
[2016-12-27] MEDS: FLUOXETINE 10 MG PO SCH (10:06)
[2016-12-27 12:00] VITALS: BP 139/89; PULSE 88; RESP 18; TEMP 98.5; O2SAT 98
[2016-12-27] MEDS ORDERED: IBUP-1547 PO (12:48)
[2016-12-27] MEDS ORDERED: DOCU-168 PO (12:48)
[2016-12-27] MEDS ORDERED: FERR-70 PO (12:48)
[2016-12-27] MEDS ORDERED: HYDR-4246 PO (12:48)
[2016-12-27 13:54] VITALS: BP 134/74; PULSE 91
[2016-12-27 16:00] VITALS: BP 142/83; PULSE 91; RESP 16; TEMP 98.4; O2SAT 96
[2016-12-27] MEDS ORDERED: LABE100T PO (16:10)
== END 2016-12-27 19:00 | disposition home or self-care (01) | DRG 765 ==
LOC: MC 14:30
PROVIDERS: ADMIT Obstetrics & Gynecology; ATTEND Obstetrics & Gynecology
PROC: 0UB70ZZ Excision of Bilateral Fallopian Tubes, Open Approach (ICD-10-PCS; 2016-12-24)
PROC: 10907ZC Drainage of Amniotic Fluid, Therapeutic from Products of Conception, Via Natural or Artificial Opening (ICD-10-PCS; 2016-12-24)
PROC: 10D00Z1 Extraction of Products of Conception, Low, Open Approach (ICD-10-PCS; principal; 2016-12-24 17:45)
PROC: 30233N1 Transfusion of Nonautologous Red Blood Cells into Peripheral Vein, Percutaneous Approach (ICD-10-PCS; 2016-12-25)
DX: O14.24 HELLP syndrome, complicating childbirth (principal); D62 Acute posthemorrhagic anemia; O34.211 Maternal care for low transverse scar from previous cesarean delivery; N85.8 Other specified noninflammatory disorders of uterus; Z30.2 Encounter for sterilization; O99.02 Anemia complicating childbirth; O14.05 Mild to moderate pre-eclampsia, complicating the puerperium; O09.893 Supervision of other high risk pregnancies, third trimester; Z20.6 Contact with and (suspected) exposure to human immunodeficiency virus [HIV]; O99.334 Smoking (tobacco) complicating childbirth; F17.210 Nicotine dependence, cigarettes, uncomplicated; O99.344 Other mental disorders complicating childbirth; F32.9 Major depressive disorder, single episode, unspecified; Z3A.38 38 weeks gestation of pregnancy; Z37.0 Single live birth
CPT/HCPCS: 36415; 82565; 83615; 83735; 84450; 84460; 85018; 85025; 85027; 85460; 85610; 86703; 86850; 86900; 86901; 86922; 90707

== ENCOUNTER 2017-01-21 20:11 | Emergency (ER) | payer MEDICAID ==
[~2017-01-21] VITALS: Ht 149.9 cm; Wt 67.9 kg
[~2017-01-21 20:11] MED LIST changes: +DOCU-168 PO; +FERR-70 PO; +HYDR-4246 PO; +IBUP-1547 PO; +LABE100T PO; -NO ROUTINE MEDS; -ONDA4TAB7 PO
--- OUTSIDE RECORDS SUMMARY | 2017-01-21 20:14 | XMS REPORT | Continuity of Care Document ---
Author Author [facility] Organization [facility] Address Unknown Phone Unavailable Support Name Relationship Address Phone VINAY CLARK MD Caregiver Unknown Unavailable VINAY CLARK MD Caregiver Unknown Unavailable SAW ANGELA Next Of Kin [address] [id number] Insurance Providers Guarantor Cristian Aguiar Address [address] [address] Email DENIED 12-21-16 Payer [facility] Community Plan Policy Number [id number] Subscriber's Name Cristian Aguiar Relationship 18 Self Effective Date 16 Expiration Date 17 Advance Directives Directive Response Recorded Date/Time Ordered Resuscitation Status Full Code 12/24/16 4:04pm Resuscitation Documents on File Yes 12/24/16 3:40pm DPOA for Healthcare Only No 12/24/16 3:40pm Living Will No 12/24/16 3:40pm Problems Past Problems Medical Problem Onset Date Diarrhea Unknown Nausea and vomiting Unknown Medications Current Home Medications Medication Dose Units Route Directions Days Qty Instructions Start Date Docusate Sodium (Colace) 100 Mg Capsule 1 Cap Oral Twice A Day for Stool Softening 30 Capsule 12/27/16 Ferrous Sulfate 325 Mg Tablet 1 Tab Oral Twice Daily With Meals 60 Tablet BEST WITH FOOD. 12/27/16 Fluoxetine Hcl (Prozac) 10 Mg Capsule 10 Mg Oral Daily 12/24/16 Hydrocodone/Acetaminophen ([place] 5-325 Tablet) 5-325 Tablet 1-2 Tab Oral Every 4 Hours as needed for Pain 30 Tablet 12/27/16 Ibuprofen 800 Mg Tablet 800 Mg Oral Every 8 Hours as needed for Pain 30 Tablet 12/27/16 Labetalol Hcl 100 Mg Tablet 200 Mg Oral Twice A Day 30 Days 120 Tablet 12/27/16 Pnv95/Ferrous Fumarate/Fa ( Tablet) 1 Each Tablet 1 Tab Oral Daily 12/17/16 Past Home Medications Medication Directions Ordered Status Ondansetron (Zofran Odt) 4 Mg Tab.rapdis, 4 Mg Oral Q6h/0300,0900,1500,2100 as needed for Nausea &/Or Vomiting 12/17/16 Discontinued Social History Social History Problem Response Recorded Date/Time Onset Date Status Reason for Hospitalization Severe preeclampsia 12/27/2016 4:39pm Not Applicable Not Applicable Chewing Tobacco Status No 12/24/2016 11:33am Not Applicable Not Applicable Hx Substance Use No 12/24/2016 3:40pm Not Applicable Not Applicable Hx Alcohol Use No 12/24/2016 11:33am Not Applicable Not Applicable Has the pt used tobacco in the last 12 months Yes 12/24/2016 3:40pm Not Applicable Not Applicable Query Response Start Date Stop Date Smoking Status Current every day smoker Hospital Discharge Instructions Instructions: Care Instructions: Reason for Hospitalization: Severe preeclampsia Discharge Diet: General diet Discharge Activity: Pelvic rest for the next 6 weeks. No heavy lifting more than 15 lbs. Follow Up Appointments: Follow up with Dr. Clark in 1 week. Call to make appt. for January 01 for a blood pressure check with Dr. Clark. Pending Lab / Results: No Pending Lab Wound/Incision Care: See discharge instructions. Pain Management/Treatment: See discharge instructions. Expected Signs/Symptoms: See discharge instructions. Notify Physician If: See discharge instructions. During Business Hours:: Please call the physician's office at [phone]. After Business Hours:: Please call [phone] and have the bending machine operator page the physician. Condition at time of discharge: Good Plan of Care Discharge Date 12/27/16 7:00pm Disposition 01 DISCHARGED HOME, SELF-CARE Instructions/Education Provided MC Delivery w/ Tubal Prescriptions See Medication Section Care Plan and Goals See Discharge Instructions Section Functional Status Query Response Date Recorded Mobility Status Ambulatory December 27, 2016 4:39pm Assistive Devices None December 27, 2016 4:39pm Activity Limitations None December 27, 2016 4:39pm Feeding Ability Independent December 27, 2016 4:39pm Toileting Ability Independent December 27, 2016 4:39pm Grooming Ability Independent December 27, 2016 4:39pm Dressing Ability Independent December 27, 2016 4:39pm Driving Ability Independent December 27, 2016 4:39pm Housework Ability Independent December 27, 2016 4:39pm Meal Preparation Ability Independent December 27, 2016 4:39pm Stair Climbing Ability Independent December 27, 2016 4:39pm Ability to complete ADL's impeded by No change December 27, 2016 4:39pm Cognitive/Perceptual Impairments Impaired vision December 27, 2016 4:39pm Visual Assistive Devices Glasses December 24, 2016 4:00pm Preferred Method of Learning Reading Demonstration Listening December 24, 2016 4:00pm Allergies, Adverse Reactions, Alerts Allergen Type Severity Reaction Status Last Updated Penicillin Allergy Severe ANAPHYLACTIC SHOCK Active 12/24/16 Immunizations Immunization Event Date Type Not Given Reason Dose Number Lot Number Slate Mixer VIS Given Rhophylac 12/25/16 Administered 0 [id number] MMR 12/26/16 Administered 1 [id number] [employer] 12/28/11 Query Response on File Recorded Date/Time Hx Influenza Vaccination N fall 201512/24/16 11:33am Hx Pneumococcal Vaccination No 12/24/16 11:33am Hx Influenza Vaccination N fall 201512/24/16 11:33am Influenza Vaccine Hx 06/201612/17/16 2:23pm MMR Vaccine Hx 12/26/16 12/26/16 9:17am Tetanus Diptheria Vaccine History unsure 12/17/16 2:23pm Vital Signs Acute Vital Signs Vital Response Date/Time Temperature (Fahrenheit) 98.4 deg F (96.8 - 99.1) 12/27/2016 4:00pm Temperature (Calculated Celsius) 36.86585 degrees C (36.0 - 37.3) 12/27/2016 4:00pm Temperature Source Axillary 12/24/2016 7:37pm Pulse Rate (adult) 91 bpm (60 - 100) 12/27/2016 4:00pm Respiratory Rate 16 breaths/min (10 - 20) 12/27/2016 4:00pm O2 Sat by Pulse Oximetry 96 % (90 - 100) 12/27/2016 4:00pm Oxygen Delivery Method Room Air 12/27/2016 4:00pm Blood Pressure 142/83 mm Hg 12/27/2016 4:00pm Blood Pressure Source Automatic Cuff 12/27/2016 4:00pm Height (Feet) 4 feet 12/24/2016 3:40pm Height (Inches) 11.00 inches 12/24/2016 3:40pm Weight (Kilograms) 78.550 kg 12/24/2016 3:40pm Body Mass Index (BMI) 36.0 12/17/2016 2:00pm Results Laboratory Results Test Name Result Units Flags Reference Collection Date/Time Result Date/ Time Comments White Blood Count 10.9 T/MM3 4.5-11.0 12/27/2016 4:12/27/2016 5: 26am Red Blood Count 2.87 M/MM3 L 4.00-5.20 12/27/2016 4:12/27/2016 5: 26am Hemoglobin 8.1 GM/DL L 12-16 12/27/2016 4:12/27/2016 5:26am Hematocrit 25.1 % L 36-46 12/27/2016 4:12/27/2016 5:26am Mean Corpuscular Volume 87.5 UM3 80-100 12/27/2016 4:12/27/2016 5: 26am Mean Corpuscular Hemoglobin 28.2 UUG 26-34 12/27/2016 4:2016 5:26am Mean Corpuscular Hemoglobin Concent 32.3 GM/DL 31-37 12/27/2016 4:12/27/2016 5:26am RDW Standard Deviation 47.6 FL 36.9-50.2 12/27/2016 4:12/27/2016 5 :26am Platelet Count 68 T/MM3 D L 130-400 12/27/2016 4:12/27/2016 5:26am Mean Platelet Volume 11.6 UM3 9.4-12.4 12/27/2016 4:12/27/2016 5: 26am Neutrophils (%) (Auto) 73.1 % H 33-66 12/24/2016 4:pm 12/24/2016 4: 39pm Lymphocytes (%) (Auto) 19.2 % L 23-45 12/24/2016 4:14pm 12/24/2016 4: 39pm Monocytes (%) (Auto) 4.6 % 0-9.0 12/24/2016 4:14pm 12/24/2016 4:39pm Eosinophils (%) (Auto) 0.6 % 0-4 12/24/2016 4:14pm 12/24/2016 4:39pm Basophils (%) (Auto) 0.3 % 0-2 12/24/2016 4:1412/24/2016 4:39pm Immature Granulocyte % (Auto) 2.2 % H 0.0-0.5 12/24/2016 4:pm 2016 4:39pm Absolute Neutrophils (auto) 8.3 T/MM3 H 1.8-7.7 12/24/2016 4:14pm 2016 4:39pm Absolute Lymphocytes (auto) 2.2 T/MM3 1-4.8 12/24/2016 4:pm 2016 4:39pm Absolute Monocytes (auto) 0.5 T/MM3 0-0.8 12/24/2016 4:pm 12/24/2016 4:39pm Absolute Eosinophils (auto) 0.1 T/MM3 0-0.5 12/24/2016 4:pm 2016 4:39pm Absolute Basophils (auto) 0.0 T/MM3 0-0.2 12/24/2016 4:pm 12/24/2016 4:39pm Absolute Immature Granulocyte (auto 0.25 T/MM3 H 0.00-0.03 12/24/2016 4: 14pm 12/24/2016 4:39pm Hemoglobin /Adult Ratio 0.0000 RATIO 0.0000-0.0045 12/24/2016 10: 11pm 12/25/2016 1:59am /ADULT RATIO VOL OF FMH VIALS INDICATED 0.0000-0.0045 0-15 ML 1 0.0046-0.0090 15-30 ML 2 0.0091-0.0135 30-45 ML 3 0.0136-0.0180 45-60 ML 4 0.0181-0.0225 60-75 ML 5 Prothromb Time International Ratio 0.85 0.76-1.04 12/25/2016 11:53am 12/25/2016 12:04pm THERAPUTIC RANGE=2.00-3.00 FOR ANTI-THROMBOSIS THERAPUTIC RANGE=2.50-3.50 FOR IMPLANTED VALVE Creatinine 0.9 MG/DL 0.7-1.2 12/24/2016 4:41pm 12/24/2016 5:13pm Glomerular Filtration Rate Calc 72 12/24/2016 4:41pm 12/24/2016 5: 13pm Aspartate Amino Transf (AST/SGOT) 38 U/L H 14-36 12/26/2016 9:15am 12/26 9:30am Alanine Aminotransferase (ALT/SGPT) 32 U/L 9-52 12/24/2016 4:41pm 12/24 5:13pm Lactate Dehydrogenase 798 U/L H 313-618 12/27/2016 4:27am 12/27/2016 5: 34am Magnesium Level 5.9 MG/DL H 1.6-2.3 12/25/2016 3:48pm 12/25/2016 4:01pm Icterus Index < 2 0-7 12/17/2016 2:07pm [...] MG/DL 7-17 12/17/2016 2:07pm 12/17/2016 4: 06pm BUN/Creatinine Ratio 11 RATIO 6-26 12/17/2016 2:07pm 12/17/2016 4:06pm Glucose Level 73 MG/DL 65-110 12/17/2016 2:07pm [...] RATIO L 1.1-2.2 12/17/2016 2:07pm 12/17/2016 4:06pm Lipase 110 U/L 23-300 12/17/2016 2:07pm 12/17/2016 4:06pm Urine Collection Type VOIDED-NOT CC-MIDSTR 12/17/2016 2:55pm 2016 2:59pm Urine Color YELLOW YELLOW 12/17/2016 2:55pm 12/17/2016 2:59pm Urine Turbidity CLEAR CLEAR 12/17/2016 2:55pm 12/17/2016 2:59pm Urine Specific [place] >=1.030 H 1.015-1.025 12/17/2016 2:55pm 2016 2:59pm [...] NOT INDICATED 12/17/2016 2:55pm 2016 3:26pm Procedures Procedure Status Date Provider(s) section Completed 12/24/16 VINAY CLARK MD Encounters Encounter Location Arrival/Admit Date Discharge/Depart Date Attending Provider Discharged Inpatient [facility] 12/24/16 2:30pm 12/27/16 7:00pm VINAY CLARK MD Departed Emergency Room [facility] 12/17/16 1:58pm 12/17/16 6: 20pm RICHARD HORN MD
[2017-01-21 20:15] VITALS: Ht 149.9 cm; Wt 67.9 kg
[2017-01-21] MEDS ORDERED: HYDROCODONE/APAP 5/325 (PrePack) SENT HOME ONE (20:30)
[2017-01-21] MEDS ORDERED: NIFE-17 PO (20:37)
--- NOTE | 2017-01-21 20:55 | ERPDOC ---
Departure Disposition Decision Date: January 21, 2017 Disposition Decision Time: 21:00 Disposition: 01 DISCHARGED HOME, SELF-CARE Impression Impression Impression: Primary Impression: Viral upper respiratory infection Additional Impression: Pain at surgical incision Severity: Moderate Condition: Improved Seen By: Physician only Referrals: MARIA A WOLF APRN Patient Instructions: Upper Respiratory Infection (ED) Problems/Meds/Labs Reviewed?: Yes Medications reviewed and manag: Yes Additional Instructions: Take ibuprofen 600 mg up to 4 times daily as needed for pain/fever Glenvil 5 mg one tablet 4 times daily as needed for more severe pain or cough At least 2 quarts of fluid daily to maintain hydration See a physician or provider at [facility] later this week for recheck Follow up care ordered?: Yes Mental Status: Alert Scripts Hydrocodone/Acetaminophen ([place] 5-325 Tablet) 5-325 Tablet 1 TAB PO QID Y for PAIN, #30 Prov: ARNOLD SLOAN MD 01/21/17 HPI - Cough/URI General Chief Complaint: Cough,Fever,Flu,URI Stated Complaint: PAIN FROM C SECTION Time Seen by Provider: 20:20 Source: patient Exam Limitations: no limitations HPI - Cough/URI Initial Comments Patient presents with several day history of cough, congestion, and increased pain along her incision site. Patient has no primary care physician, has not contacted her AEROBICS INSTRUCTOR, and came in [facility] primarily to bring her 28-day-old for evaluation for cough. Occurred At: home Onset/Timing: Rapid Duration: 1 week Associated Symptoms: cough, headache, DENIES: chest pain/soreness, dizziness, earache, facial pain, fever/chills, lightheadedness, muscle aches, nasal congestion, nasal drainage, shortness of breath, sinus infection, sore throat, wheezing Hx of Similar Symptoms: No Allergies: Coded Allergies: Penicillins (Verified Allergy, Severe, ANAPHYLACTIC SHOCK, 12/24/16) Past History Surgical History Reproductive/: Vaccines Hx Influenza Vaccination: No (FALL 2015) Hx Pneumococcal Vaccination: No Social History Smoking Status: Never smoker Does patient use chewing tobac: No # of Packs/Tins per Day: 0.8 # of Years: 20 Second Hand Exposure: No Substance Use Type: methamphetamine Alcohol Intake: none Record Review Pertinent history updated: Yes Review of Systems Constitutional Constitutional: DENIES: appetite decrease, appetite increase, chills, dizziness , fever, weakness ENMT Ears: DENIES: pain Hearing: DENIES: hearing loss, tinnitus Balance: DENIES: vertigo Sinuses: congestion, rhinorrhea Mouth/Throat: DENIES: change in swallowing, change in voice, hoarsness, painful swallowing, sore throat Cardiovascular Cardiac: DENIES: chest pain, dyspnea on exertion Rhythm/Rate: DENIES: irregular beat, palpitations, tachycardia Vascular: DENIES: pedal edema Pulmonary Respiratory: cough, DENIES: dyspnea, exposure to TB, hyperventilation, last PPD , pleuritic chest pain, pneumonia hx, recent risky activities, sputum, tachypnea GI Upper Abdomen: DENIES: dysphagia, heartburn/indigestion, nausea, pain, vomiting Lower Abdomen: DENIES: blood in stool, constipation, diarrhea, pain General: DENIES: burning, dysuria, frequency, pain, urgency Musculoskeletal General: DENIES: cramps, joint pain, joint swelling, pain, weakness Integumentary Skin: DENIES: rash, sores Neurological General: DENIES: headache, numbness, tingling, vertigo, weakness Psychiatric Psychiatric: DENIES: anxiety, depression, nervousness Physical Exam General General Nourishment: well nourished, well developed, appears stated age, no acute distress General Body Habitus: well groomed Vitals and Pain Weight: Kilograms: Height (feet): 4 Height (inches): 11.00 Triage Pain Scale: RN VS reviewed by Provider: Yes Normal Exams: Head: Normocephalic w/o trauma Eyes: Pupils are PERRLA w/ EOMI, No scleral icterus, irritation, or foreign bodies noted Neck: Full range of motion, without adenopathy, JVD, bruits or thyromegaly CV: Regular rate and rhythm, without murmur or gallop, Pulses 2+ all extremities, capillary refill, <2 seconds all ext., no pedal edema noted Abdomen: Bowel sounds positive, soft, non-tender, non-distended, no hepatosplenomegaly, masses or bruits noted Lymphatic: No lymphadenopathy, or lymphedema noted Musculoskeletal: No tenderness, or deformity noted, good range of motion, all extremities Integumentary: No rashes, hives, or bruising noted, hair and nails, without abnormality Neurologic: Patient is alert, and oriented, cranial nerves, motor/sensory/ cerebellar, exams w/o gross deficits, to observation Psychiatric: Patient exhibits, appropriate attention, emotion and affect ENMT (brief) ENMT Brief: FOUND: TM clear, TM good light reflex, ear canals clear, mucosa moist, nasal erythema, nasal exudate, nasal swelling, normal dentition, normal tonsils, NOT FOUND: lesions, petechiae, pharnyx erythema, tonsillar deviation Neck (brief) Neck: FOUND: trachea midline, NOT FOUND: JVD, adenopathy, spasm, tenderness, thyromegaly Respiratory (brief) Respiratory: FOUND: clear all [place], equal bilaterally, symmetrical, NOT FOUND : rales, tenderness, wheezes Comments Patient has mild coarse wet cough only Abdomen (brief) Abdominal Brief: FOUND: bowel normo active x4, soft, tender (mild diffuse tenderness across a well-healing scar) Progress Results/Orders Orders Procedure Category Date Status Time Hydrocodone/Apap PHA 01/21/17 Complete 5/325 Prepack (Glenvil 5 20:30 Medications Current ED Medications Acetaminophen/ Hydrocodone Bitart (NORCO 5 (PrePack)) 1 pack O ONCE SENT HOME ; Start 01/21/17 at 20:30; Stop 01/21/17 at 20:31; Status DC Progress Progress Patient given refill for her Glenvil 5 mg #30 tablets, instructed on its use, as well as ibuprofen and fluids until her chest cold resolves ARNOLD SLOAN MD January 21, 2017 20:55
[2017-01-21] MEDS ORDERED: HYDR-4246 PO (21:02)
[2017-01-21 21:15] VITALS: BP 128/79; PULSE 89; RESP 16; TEMP 98.1; O2SAT 99
== END 2017-01-21 21:15 | disposition home or self-care (01) ==
LOC: ED 20:11
DX: J06.9 Acute upper respiratory infection, unspecified (principal); B97.89 Other viral agents as the cause of diseases classified elsewhere; G89.18 Other acute postprocedural pain

== ENCOUNTER 2017-01-27 13:42 | Emergency (ER) | payer MEDICAID ==
[~2017-01-27] VITALS: Ht 149.9 cm; Wt 67.6 kg
[~2017-01-27 13:42] MED LIST changes: -LABE100T PO; +NIFE-17 PO
[2017-01-27 13:44] VITALS: Ht 149.9 cm; Wt 67.6 kg
--- OUTSIDE RECORDS SUMMARY | 2017-01-27 13:47 | XMS REPORT | Continuity of Care Document ---
Author Author [facility] Organization [facility] Address Unknown Phone Unavailable Support Name Relationship Address Phone ARNOLD SLOAN MD Caregiver [address] [place] [address] [place] [address] Unavailable SAW ANGELA Next Of Kin [address] [id number] Insurance Providers Guarantor Cristian Aguiar Address [address] [address] Email DENIED 12-24-16 Payer [facility] Community Plan Policy Number [id number] Subscriber's Name StefaniaCristian Relationship 18 Self Effective Date 16 Expiration Date 17 Advance Directives Directive Response Recorded Date/Time Advanced Directives Type None 01/21/17 8:15pm Chief Complaint and Reason for Visit Chief Complaint Cough,Fever,Flu,URI Reason for Visit [id number] Problems Past Problems Medical Problem Onset Date Diarrhea Unknown Nausea and vomiting Unknown Pain at surgical incision Unknown Viral upper respiratory infection Unknown Medications Current Home Medications Medication Dose Units Route Directions Days Qty Instructions Start Date Docusate Sodium (Colace) 100 Mg Capsule 1 Cap Oral Twice A Day for Stool Softening 30 Capsule 12/27/16 Ferrous Sulfate 325 Mg Tablet 1 Tab Oral Twice Daily With Meals 60 Tablet BEST WITH FOOD. 12/27/16 Fluoxetine Hcl (Prozac) 10 Mg Capsule 10 Mg Oral Daily 12/24/16 Hydrocodone/Acetaminophen ([place] 5-325 Tablet) 5-325 Tablet 1-2 Tab Oral Every 4 Hours as needed for Pain 30 Tablet 12/27/16 Hydrocodone/Acetaminophen ([place] 5-325 Tablet) 5-325 Tablet 1 Tab Oral Four Times Daily as needed for Pain 30 01/21/17 Ibuprofen 800 Mg Tablet 800 Mg Oral Every 8 Hours as needed for Pain 30 Tablet 12/27/16 Nifedipine (Nifedipine Er) 30 Mg Tablet.er 30 Mg Oral Qd 01/21/17 Pnv95/Ferrous Fumarate/Fa ( Tablet) 1 Each Tablet 1 Tab Oral Daily 12/17/16 Past Home Medications Medication Directions Ordered Status Ondansetron (Zofran Odt) 4 Mg Tab.rapdis, 4 Mg Oral Q6h/0300,0900,1500,2100 as needed for Nausea &/Or Vomiting 12/17/16 Discontinued Social History Social History Problem Response Recorded Date/Time Onset Date Status Hx Substance Use No 01/21/2017 9:00pm Not Applicable Not Applicable Hx Alcohol Use No 01/21/2017 9:00pm Not Applicable Not Applicable Has the pt used tobacco in the last 12 months Yes 12/24/2016 3:40pm Not Applicable Not Applicable Query Response Start Date Stop Date Smoking Status Never smoker Hospital Discharge Instructions No hospital discharge instructions. Plan of Care Discharge Date 01/21/17 9:15pm Disposition 01 DISCHARGED HOME, SELF-CARE Condition at Discharge Improved Instructions/Education Provided Upper Respiratory Infection (ED) Prescriptions See Medication Section Referrals MARIA A WOLF APRN Address: [address] [place] [phone] Additional Instructions/Education Take ibuprofen 600 mg up to 4 times daily as needed for pain/fever [place] 5 mg one tablet 4 times daily as needed for more severe pain or cough At least 2 quarts of fluid daily to maintain hydration See a physician or [facility] this week for recheck Care Plan and Goals Physician Care Plan Problem: Postoperative pain, viral upper respiratory infection Goal: Follow up with primary care provider Instructions: Take medications and follow care plan as discussed/written Take ibuprofen 600 mg up to 4 times daily as needed for pain/fever [place] 5 mg one tablet 4 times daily as needed for more severe pain or cough At least 2 quarts of fluid daily to maintain hydration See a physician or provider [facility] this week for recheck Functional Status No functional status results. Allergies, Adverse Reactions, Alerts Allergen Type Severity Reaction Status Last Updated Penicillin Allergy Severe ANAPHYLACTIC SHOCK Active 12/24/16 Immunizations Immunization Event Date Type Not Given Reason Dose Number Lot Number Earthmoving Labourer VIS Given Rhophylac 12/25/16 Administered 4 [id number] MMR 12/26/16 Administered 1 [id number] [employer] 12/28/11 Query Response on File Recorded Date/Time Hx Influenza Vaccination N fall 201512/24/16 11:33am Hx Pneumococcal Vaccination No 12/24/16 11:33am Hx Influenza Vaccination N FALL 201512/24/16 11:33am Influenza Vaccine Hx 06/201601/21/17 9:00pm MMR Vaccine Hx 12/26/16 12/26/16 9:17am Tetanus Diptheria Vaccine History unsure 01/21/17 9:00pm Vital Signs Acute Vital Signs Vital Response Date/Time Temperature (Fahrenheit) 98.1 deg F (96.8 - 99.1) 01/21/2017 9:15pm Temperature (Calculated Celsius) 36.02271 degrees C (36.0 - 37.3) 01/21/2017 9:15pm Temperature Source Axillary 12/24/2016 7:37pm Pulse Rate (adult) 89 bpm (60 - 100) 01/21/2017 9:15pm Respiratory Rate 16 breaths/min (10 - 20) 01/21/2017 9:15pm O2 Sat by Pulse Oximetry 99 % (90 - 100) 01/21/2017 9:15pm Oxygen Delivery Method Room Air 12/27/2016 4:00pm Blood Pressure 128/79 mm Hg 01/21/2017 9:15pm Blood Pressure Source Automatic Cuff 12/27/2016 4:00pm Height (Feet) 4 feet 01/21/2017 8:15pm Height (Inches) 11.00 inches 01/21/2017 8:15pm Weight (Kilograms) 67.900 kg 01/21/2017 8:15pm Body Mass Index (BMI) 30.0 01/21/2017 8:15pm Results Laboratory Results Test Name Result Units Flags Reference Collection Date/Time Result Date/ Time Comments White Blood Count 10.9 T/MM3 4.5-11.0 12/27/2016 4:27am 12/27/2016 5: 26am Red Blood Count 2.87 M/MM3 L 4.00-5.20 12/27/2016 4:27am 12/27/2016 5: 26am Hemoglobin 8.1 GM/DL L 12-16 12/27/2016 4:27am 12/27/2016 5:26am Hematocrit 25.1 % L 36-46 12/27/2016 4:27am 12/27/2016 5:26am Mean Corpuscular Volume 87.5 UM3 80-100 [...] (%) (Auto) 73.1 % H 33-66 12/24/2016 4:12/24/2016 4: 39pm Lymphocytes (%) (Auto) 19.2 % L 23-45 12/24/2016 4:12/24/2016 4: 39pm Monocytes (%) (Auto) 4.6 % 0-9.0 12/24/2016 4:12/24/2016 4:39pm Eosinophils (%) (Auto) 0.6 % 0-4 12/24/2016 4:12/24/2016 4:39pm Basophils (%) (Auto) 0.3 % 0-2 12/24/2016 4:12/24/2016 4:39pm Immature Granulocyte % (Auto) 2.2 % H 0.0-0.5 12/24/2016 4:2016 4:39pm Absolute Neutrophils (auto) 8.3 T/MM3 H 1.8-7.7 12/24/2016 4:2016 4:39pm Absolute Lymphocytes (auto) 2.2 T/MM3 1-4.8 12/24/2016 4:2016 4:39pm Absolute Monocytes (auto) 0.5 T/MM3 0-0.8 12/24/2016 4:12/24/2016 4:39pm Absolute Eosinophils (auto) 0.1 T/MM3 0-0.5 12/24/2016 4:14pm 2016 4:39pm Absolute Basophils (auto) 0.0 T/MM3 0-0.2 12/24/2016 4:14pm 12/24/2016 4:39pm Absolute Immature Granulocyte (auto 0.25 [...] 4:06pm Total Bilirubin 0.60 MG/DL 0.20-1.30 12/17/2016 2:0712/17/2016 4: 06pm Alkaline Phosphatase 249 U/L H 38-126 12/17/2016 2:12/17/2016 4: 06pm Total Protein 7.1 G/DL 6.3-8.2 [...] CLEAR 12/17/2016 2:55pm 12/17/2016 2:59pm Urine Specific [place] >=1.030 H 1.015-1.025 12/17/2016 2:55pm 2016 2:59pm [...] 2016 3:26pm Procedures Procedure Status Date Provider(s) delivery only Completed 12/24/16 VINAY CLARK MD, BRENDA L MD [place] oviduct(s) add-on Completed 12/24/16 VINAY CLARK MD, BRENDA L MD Blood transfusion service Completed 12/24/16 VINAY CLARK MD EXTRACTION OF POC, LOW CERVICAL, OPEN APPROACH Completed 12/24/16 VINAY CLARK MD EXCISION OF BILATERAL FALLOPIAN TUBES, OPEN APPROACH Completed 12/24/16 VINAY CLARK MD TRANSFUSE NONAUT RED BLOOD CELLS IN PERIPH VEIN, PERC Completed 12/25/16 VINAY CLARK MD DRAINAGE OF AMNIOTIC FL, THERAP FROM POC, VIA OPENING Completed 12/24/16 VINAY CLARK MD Encounters Encounter Location Arrival/Admit Date Discharge/Depart Date Attending Provider Departed Emergency Room [facility] 01/21/17 8:11pm 01/21/17 9: 15pm ARNOLD SLOAN MD Discharged Inpatient [facility] 12/24/16 2:30pm 12/27/16 7:00pm VINAY CLARK MD Departed Emergency Room [facility] 12/17/16 1:58pm 12/17/16 6: 20pm RICHARD HORN MD Recent Diagnosis
[2017-01-27] MEDS ORDERED: FERR-70 PO (14:08)
--- NOTE | 2017-01-27 14:12 | ERPDOC ---
Departure Disposition Decision Date: January 27, 2017 Disposition Decision Time: 15:16 Disposition: 01 DISCHARGED HOME, SELF-CARE Impression Impression Impression: Primary Impression: Sinusitis Sinusitis location: maxillary Chronicity: acute Recurrence: non-recurrent Qualified Codes: J01.00 - Acute maxillary sinusitis, unspecified Severity: Moderate Condition: Improved Seen By: Mid-level only Patient Instructions: Sinusitis (ED) Problems/Meds/Labs Reviewed?: Yes Medications reviewed and manag: Yes Additional Instructions: Take azithromycin 250 mg, 2 tabs today and then 1 tab daily for next 4 days. Take loratadine 10 mg 1 tab daily. Take pseudoephedrine 120 mg twice daily to help decongest and dry at sinus drainage. You may take 800mg of ibuprofen for pain with food every [address] Paul as schedule or your PCP. Follow treatment plan. Follow up care ordered?: Yes Mental Status: Alert, Oriented Scripts Pseudoephedrine HCl (Pseudoephedrine ER) 120 Mg Tablet.er 1 TAB PO BID, #20 TAB Prov: CHELY GIL APRN 01/27/17 Loratadine (Loratadine) 10 Mg Tablet 10 MG PO DAILY for 30 Days, #30 TAB Take 1 tablet, by mouth, one time a day (before breakfast). Prov: CHELY GIL APRN 01/27/17 Azithromycin (Azithromycin) 250 Mg Tablet 1 TAB PO DAILY, #6 TAB TAKE TWO TABLETS ON DAY ONE, THEN ONE TABLET DAILY UNTIL ALL TAKEN. Prov: CHELY GIL APRN 01/27/17 HPI - Cough/URI General Chief Complaint: Cough,Fever,Flu,URI Stated Complaint: COUGH,PAINFUL INCISION,CONGESTION Time Seen by Provider: 14:09 Source: patient HPI - Cough/URI Initial Comments 31-year-old female presents to ER with complaint of cough, sinus congestion, runny nose with green drainage since January 19. Patient was seen in the ER on January 23 and diagnosed with a URI. Patient was given Caraway 5/325 to take for cough and incisional pain(patient had on December 24). Patient states she still has a cough which she does believe it is in her upper airway. Patient is unable to afford to get [id number] antihistamine or decongestant. Patient denies fevers, chills, shortness of breath, nausea or vomiting. Patient has not followed with her PCP. When asked if she has had a fever patient says "I fell hot sometimes". Pain/Severity Scale: Worst: 8/10 (incisional pain when coughing) Associated Symptoms: cough, nasal congestion, nasal drainage, DENIES: chest pain/soreness, dizziness, earache, facial pain, fever/chills, headache, lightheadedness, shortness of breath, sore throat, wheezing Allergies: Coded Allergies: Penicillins (Verified Allergy, Severe, ANAPHYLACTIC SHOCK, 12/24/16) Past History Past Medical History Metabolic: hypertension (PIH) Cardiac: DENIES: angina Respiratory: DENIES: asthma Female: DENIES: renal insufficiency Musculoskeletal: DENIES: rheumatoid arthritis Psychological: drug abuse, DENIES: depression Surgical History Reproductive/: Family History Family PMH: FOUND: other (noncontributory) Vaccines Hx Influenza Vaccination: No (FALL 2015) Hx Pneumococcal Vaccination: No Social History Does patient use chewing tobac: No # of Packs/Tins per Day: 0.8 # of Years: 20 Second Hand Exposure: No Substance Use Type: methamphetamine Alcohol Intake: none Sexuality: male partner Review of Systems Constitutional Constitutional: DENIES: chills, dizziness, fever, weakness Eyes General: DENIES: erythema, exudate Lids/Accessories: DENIES: erythema, swelling Vision: blurring ENMT Ears: DENIES: pain Sinuses: congestion, rhinorrhea Mouth/Throat: DENIES: sore throat Cardiovascular Cardiac: DENIES: chest pain, murmur Rhythm/Rate: DENIES: palpitations Pulmonary Respiratory: cough, DENIES: dyspnea GI Upper Abdomen: DENIES: nausea, pain, vomiting Lower Abdomen: pain (incisional pain with cough), DENIES: diarrhea General: DENIES: dysuria, pain Musculoskeletal General: DENIES: joint pain, pain, tenderness Integumentary Skin: DENIES: color change, itching, rash Neurological General: DENIES: ataxia, change in strength, numbness, paralysis/paresis, weakness Psychiatric Psychiatric: DENIES: anxiety, depression, nervousness Physical Exam General General Nourishment: well nourished, well developed, no acute distress, adult Vitals and Pain First Documented Vital Signs Date Time Temp Pulse Resp B/P Pulse Ox O2 Delivery O2 Flow Rate FiO2 01/27/17 13:44 98.5 88 20 93/56 97 Room Air Weight: Kilograms: 67.600 Height (feet): 4 Height (inches): 11.00 Triage Pain Scale: Eyes (brief) Eyes Brief: found: EOMI, PERRL ENMT (brief) ENMT Brief: FOUND: TM clear, TM good light reflex, mucosa moist, NOT FOUND: nasal exudate, nasal swelling, pharnyx erythema ENMT Pharynx: FOUND: posterior drainage Face: FOUND: sinus tenderness (TTP over maxillary sinus bilaterally) Neck (brief) Neck: FOUND: trachea midline, NOT FOUND: adenopathy, spasm, tenderness, thyromegaly Respiratory (brief) Respiratory: FOUND: clear all [place], equal bilaterally, symmetrical Cardiovascular (brief) Cardiac: FOUND: regular rate, regular rhythm Musculoskeletal (brief) Musculoskeletal Brief: NOT FOUND: deformity, tenderness Integumentary (brief) Integumentary Brief: FOUND: dry, pink, warm Neurologic (brief) Neurological Brief: FOUND: CN w/o gross def to obs, motor-no gross deficits, sensory-no gross deficits Psychiatric (brief) Psychiatric Brief: FOUND: alert, normal affect, oriented Differential Diagnoses Differential Diagnoses Considering: Acute Bronchitis, Pneumonia, Sinusitis, URI, Viral Syndrome Progress Results/Orders Orders Procedure Category Date Status Time Cbc W/Auto LAB 01/27/17 Complete Diff-Reflex Manual Bmp - Basic Metabolic LAB 01/27/17 Complete Panel Lab Results Laboratory Tests Test 01/27/17 14:41 White Blood Count 6.5T/MM3 Red Blood Count 4.11M/MM3 Hemoglobin 11.2GM/DL Hematocrit 34.7% Mean Corpuscular Volume 84.4UM3 Mean Corpuscular Hemoglobin 27.3UUG Mean Corpuscular Hemoglobin Concent 32.3GM/DL RDW Standard Deviation 48.7FL Platelet Count 166T/MM3 Mean Platelet Volume 10.1UM3 Immature Granulocyte % (Auto) 0.2% Neutrophils (%) (Auto) 69.1% Lymphocytes (%) (Auto) 22.2% Monocytes (%) (Auto) 6.2% Eosinophils (%) (Auto) 2.0% Basophils (%) (Auto) 0.3% Absolute Immature Granulocyte (auto 0.01T/MM3 Absolute Neutrophils (auto) 4.5T/MM3 Absolute Lymphocytes (auto) 1.4T/MM3 Absolute Monocytes (auto) 0.4T/MM3 Absolute Eosinophils (auto) 0.1T/MM3 Absolute Basophils (auto) 0.0T/MM3 Turbidity < 20 Sodium Level 148MEQ/L Potassium Level 4.1MEQ/L Chloride Level 107MEQ/L Carbon Dioxide Level 27MEQ/L Anion Gap 14MEQ/L Blood Urea Nitrogen 7.0MG/DL Creatinine 0.9MG/DL Glomerular Filtration Rate Calc 72 BUN/Creatinine Ratio 8RATIO Glucose Level 105MG/DL Calculated Osmolality 282MOSM/KG Calcium Level 9.5MG/DL Icterus Index < 2 Chemistry Specimen Hemolysis < 15 Progress Progress I discussed labs with patient and discussed treatment plan. I told patient to check with her OB to determine if it was alright for her to take pseudoephedrine due to the fact she had preeclampsia and is on blood pressure medicine. Patient is interjects that the only reason they came to the ER today with so she could get narcotic pain medicine due to her incisional pain when coughing. Patient has not coughed at all while I have been in the room today. Patient immediately begins coughing. I explained to patient that medication I am prescribing should help improve her cough since it's from sinus drainage however pain patient's again continues to argue that patient needs to have Caraway. I discussed conversation I had with Dr. Paul and that she did not feel patient needed any Caraway since she is nearly [address] Paul did say patient could take pseudoephedrine. I instructed patient to wear abdominal binder (per Dr. Paul) which patient seems to question whether or not she has an abdominal binder. I instructed patient to follow as scheduled with Dr. Harrison that she could follow sooner than appointment on Saturday as needed. Patient verbalized understanding of discharge/treatment plan, follow- up and return precautions. Consult/PCP Consult/PCP : Type of discussion: Phone Consult/PCP Discussion Details I discussed patient's HPI, past medical history, labs, vital signs, exam findings and treatment plan with Dr. Koutrney Paul patient's OB. Dr. Paul said that she did not feel like this patient needed any additional narcotics. Patient is almost 6 weeks . Patient has a history according to Dr. Paul of narcotic abuse. She suggested that patient wear an abdominal binder which she says patient does have. Patient has appointment next Saturday with Dr. Paul. Dr. Paul says patient may call if she feels like she needs to follow with her sooner. Dr. Paul said patient may take pseudoephedrine. CHELY GIL [employer]OUSING PROJECT MANAGER January 27, 2017 14:11
[2017-01-27 14:54] LABS: BASOPHILS % (AUTO) 0.3 % (0-2); EOSINOPHILS # (AUTO) 0.1 T/MM3 (0-0.5); HCT - HEMATOCRIT 34.7 % (36-46); HGB - HEMOGLOBIN 11.2 GM/DL (12-16); IMMATURE GRANULOCYTE # (AUTO) 0.01 T/MM3 (0.00-0.03); IMMATURE GRANULOCYTE % (AUTO) 0.2 % (0.0-0.5); LYMPHOCYTES # (AUTO) 1.4 T/MM3 (1-4.8); LYMPHOCYTES % (AUTO) 22.2 % (23-45); MEAN CORPUSCULAR HGB 27.3 UUG (26-34); MEAN CORPUSCULAR HGB CONC(MCHC 32.3 GM/DL (31-37); MEAN CORPUSCULAR VOLUME 84.4 UM3 (80-100); MEAN PLATELET VOLUME 10.1 UM3 (9.4-12.4); MONOCYTES # (AUTO) 0.4 T/MM3 (0-0.8); MONOCYTES % (AUTO) 6.2 % (0-9.0); NEUTROPHILS #(AUTO)-ABSOLUTE 4.5 T/MM3 (1.8-7.7); NEUTROPHILS % (AUTO) 69.1 % (33-66); RED BLOOD COUNT 4.11 M/MM3 (4.00-5.20); WBC - WHITE BLOOD COUNT 6.5 T/MM3 (4.5-11.0)
[2017-01-27 15:03] LABS: ANION GAP 14 MEQ/L (5-15); BUN/CREATININE RATIO 8 RATIO (6-26); CALCIUM 9.5 MG/DL (8.4-10.2); CHLORIDE 107 MEQ/L (98-107); CO2 - CARBON DIOXIDE 27 MEQ/L (22-30); CREATININE 0.9 MG/DL (0.7-1.2); GLOMERULAR FILTRATION RATE 72; GLUCOSE 105 MG/DL (65-110); POTASSIUM 4.1 MEQ/L (3.6-5); SODIUM 148 MEQ/L (134-144)
[2017-01-27] MEDS ORDERED: LORA10TA7 PO (15:25)
[2017-01-27] MEDS ORDERED: PSEU120T80 PO (15:25)
[2017-01-27] MEDS ORDERED: AZIT250T6 PO (15:25)
[2017-01-27 16:00] VITALS: BP 101/61; PULSE 87; RESP 18; TEMP 98.5; O2SAT 97
== END 2017-01-27 16:00 | disposition home or self-care (01) ==
LOC: ED 13:42
DX: J01.00 Acute maxillary sinusitis, unspecified (principal); F17.200 Nicotine dependence, unspecified, uncomplicated
CPT/HCPCS: 36415; 80048; 85025